=== PATIENT | male | born 1950 | race Caucasian/White ===

== ENCOUNTER → 2018-07-17 | Outpatient (CLI) | payer MEDICARE, OTHER ==
--- NOTE | 2018-07-17 15:57 | XR ---
Lumbar spine HISTORY: Low back pain 3 views of the lumbar spine November vertebral bodies show preserved height, near-anatomic alignment. Bone mineralization is mild ly reduced. There is multilevel spondylosis. Loss of disc height present at the intervertebral levels . Sclerosis present in the posterior elements of the lower lumbar spine. Vascular calcifications are noted. Minimal anterolisthesis grade 1 L4-5. IMPRESSION: Degenerative disc disease, facet arthropathy.
== END | disposition home or self-care (01) ==
LOC: RADXRMAIN 14:57
PROVIDERS: ATTEND Family Medicine
DX: M51.36 Other intervertebral disc degeneration, lumbar region (principal); M46.96 Unspecified inflammatory spondylopathy, lumbar region
CPT/HCPCS: 72100

== ENCOUNTER 2018-08-29 12:21 | Emergency (ER) | payer MEDICARE, OTHER ==
[2018-08-29] MEDS ORDERED: DIPH,PERTUS(ACELL)TETVAC-LF 0.5 ML VIAL IM ONE (12:46)
--- NOTE | 2018-08-29 12:46 | ED ---
General Adult HPI - General Chief complaint: Fall Stated complaint: IHS-Fall Time Seen by Provider: 08/29/18 12:29 Source: patient, RN notes reviewed Mode of arrival: wheelchair Limitations: no limitations - History of Present Illness Initial comments: Patient is a 68-year-old male who presents to the emergency department with complaint of slip and fall on ice at work that happened around noon today. He reports hitting the back of his head; admits to headache. Denies loss of consciousness. Denies anticoagulant use. Reports he is not up-to-date on his tetanus vaccination. Denies neck pain or any additional injury. Patient denies any recent fever, chills, shortness of breath, chest pain, back pain, abdominal pain, nausea or vomiting, numbness or tingling, visual changes, or any other complaints. - Related Data Home Medications Medication Instructions Recorded Confirmed Levothyroxine Sodium [Synthroid] 125 mcg PO DAILY 08/29/18 08/29/18 PARoxetine [Paxil] 20 mg PO DAILY 08/29/18 08/29/18 Allergies Allergy/AdvReac Type Severity Reaction Status Date / Time No Known Allergies Allergy Verified 08/29/18 13:22 Review of Systems ROS Statement: Those systems with pertinent positive or pertinent negative responses have been documented in the HPI. ROS Other: All systems not noted in ROS Statement are negative. Past Medical History Past Medical History: Thyroid Disorder History of Any Multi-Drug Resistant Organisms: None Reported Additional Past Surgical History / Comment(s): SINUS SURGERY R/T FUNGUS. COLONOSCOPY 2005. Past Anesthesia/Blood Transfusion Reactions: Previous Problems w/ Anesthesia Additional Past Anesthesia/Blood Transfusion Reaction / Comment(s): LAST COLONOSCOPY TOOK LONG TIME TO AWAKEN. Past Psychological History: No Psychological Hx Reported Smoking Status: Never smoker Past Alcohol Use History: None Reported Past Drug Use History: None Reported - Past Family History Father Family Medical History: Cancer General Exam Limitations: no limitations General appearance: alert, in no apparent distress Head exam: Present: other (Laceration to posterior head.) Eye exam: Present: normal appearance, PERRL ENT exam: Present: normal oropharynx, normal external ear exam, other (Unable to visualize TMs bilaterally due to cerumen.) Neck exam: Present: normal inspection, full ROM. Absent: tenderness Respiratory exam: Present: normal lung sounds bilaterally. Absent: wheezes, rales, rhonchi Cardiovascular Exam: Present: regular rate, normal rhythm Back exam: Absent: tenderness Neurological exam: Present: alert, oriented X3 Psychiatric exam: Present: normal affect, normal mood Course Vital Signs 08/29/18 08/29/18 12:24 15:59 Temperature 98.1 F 97.4 F L Pulse Rate 90 84 Respiratory 20 16 Rate Blood Pressure 141/81 134/90 O2 Sat by Pulse 96 96 Oximetry Procedures - Laceration Laceration #1 Consent Obtained: verbal consent Indication: laceration Site: scalp Size (cm): 5 Description: linear, clean Depth: simple, single layer Sedation/Analgesia: none Anesthetic Used: lidocaine 1%, with epi Anesthesia Technique: local infiltration Amount (mls): 7 Pre-repair: wound explored, irrigated extensively Type of Sutures: other ([place].) Number of Sutures: 5 ([place].) Patient Tolerated Procedure: well, no complications Medical Decision Making - Medical Decision Making Updated tetanus vaccination here. CT brain reveals no acute intracranial abnormality. CT c-spine reveals no acute fracture or malalignment of the cervical spine. Laceration stapled. Case discussed in detail with attending physician Dr. Davison. Disposition Clinical Impression: Laceration Disposition: HOME SELF-CARE Condition: Good Instructions (If sedation given, give patient instructions): Staple Care (ED) Additional Instructions: Follow-up with your PCP in 1 to 2 days. Return to the emergency department or follow-up with your PCP in 7-10 days for staple removal. Use [id number] Tylenol for pain control as needed. Return to the emergency department if any concerns. Is patient prescribed a controlled substance at d/c from ED?: No Referrals: Supa Macias DO [Primary Care Provider] - 1-2 days
--- NOTE | 2018-08-29 13:11 | CT ---
EXAMINATION TYPE: CT brain k[place] DATE OF EXAM: 08/29/2018 COMPARISON: None HISTORY: 68-year-old male with pain after Slip and fall, open wound back of head, fatigue CT DLP: 1429.4 mGycm Automated exposure control for dose reduction was used. Technique: Examination of the head was done in axial plane without intravenous contrast. Coronal and sagittal reconstructions performed. CT of the cervical spine was obtained in axial plane without intravenous injection of contrast mater ial. Coronal and sagittal reformatted images were obtained from the axial views for evaluation of f ractures, spinal alignment and canal. FINDINGS: Head: There is no evidence of acute intracranial hemorrhage, acute ischemic changes, mass, mass-effect, or extra-axial fluid collection. There is no effacement of cerebral sulci or basal subarachnoid cister ns. There is no hydrocephalus. There is no midline shift. Randolph-white matter distinction is preserv ed. Scattered moderate mucosal thickening ethmoid air cells and anterior left maxillary sinus, mild-to-mo derate left frontal sinus. Orbits and globes appear intact. Mastoid air cells well pneumatized. No ca lvarial fracture. Cervical spine: Partially visualized periodontal disease with extensive areas of periapical lucencies particularly on the left, refer to coronal image 1. No craniocervical junction abnormality, predental space widening , or prevertebral soft tissue swelling. Degenerative changes of the C1 dens articulation. Straightening of the normal cervical lordosis. Preserved alignment. No acute fracture of the cervical spine. Moderate to advanced multilevel spondylotic changes present. Severe degenerative disc disease at C6-C 7. Hypertrophic facet and uncovertebral joint arthropathy at multiple levels. Assessment of the spinal canal is limited from C6-C7 and below from artifact due to the patient's keagan ulders. This possible moderate spinal canal stenosis and C6-C7. Suggestion of a posterior disc protru annette C4-C5 possibly contributing to a moderate to severe spinal canal stenosis. Variable neuroforaminal stenoses throughout, moderate to severe on the left at C3-C4, moderate left C 5-C6, moderate to severe right C5-C6, severe on both sides at C6-C7. Sagittal and coronal reformatted images confirm above findings. COMBINED IMPRESSION: 1. No acute intracranial abnormality seen. Scattered moderate chronic ethmoid sinus disease. 2. No acute fracture or malalignment of the cervical spine. Moderately advanced spondylotic change. P ossible moderate to severe spinal canal stenosis at C4-C5 due to disc herniation and moderate at C6-C 7 due to disc osteophyte complex. Variable neuroforaminal stenoses as outlined above.
[2018-08-29] MEDS ORDERED: LIDOCAINE 1%-EPI 1:100,000 20 ML VIAL SQ ONE (14:34)
[2018-08-29 16:01] VITALS: BP 134/90; PULSE 84; RESP 16; TEMP 97.4
== END 2018-08-29 16:00 | disposition home or self-care (01) ==
LOC: EC 12:21
DX: S01.91XA Laceration without foreign body of unspecified part of head, initial encounter (principal); Z23 Encounter for immunization; E07.9 Disorder of thyroid, unspecified; Z79.890 Hormone replacement therapy; Z79.899 Other long term (current) drug therapy; W00.0XXA Fall on same level due to ice and snow, initial encounter; Y92.69 Other specified industrial and construction area as the place of occurrence of the external cause; Y99.0 Civilian activity done for income or pay
CPT/HCPCS: 12002; 70450; 72125; 90471; 90715; 99283

== ENCOUNTER 2022-12-30 06:32 | Inpatient (IN) | payer MEDICARE, OTHER ==
[2022-12-30 07:04] LABS: Basophils % (A) 0 %; Eosinophils # (A) 0.1 k/uL (0-0.7); Eosinophils % (A) 2 %; HCT 46.6 % (39.0-53.0); HGB 15.5 gm/dL (13.0-17.5); Lymphocytes % (A) 13 %; MCH 31.7 pg (25.0-35.0); MCHC 33.3 g/dL (31.0-37.0); MCV 95.2 fL (80.0-100.0); Mean Platelet Volume 6.9; Monocytes # (A) 0.6 k/uL (0-1.0); Monocytes % (A) 9 %; Neutrophils # (A) 5.6 k/uL (1.3-7.7); Neutrophils % (A) 75 %; Platelet Count 225 k/uL (150-450); RDW 12.7 % (11.5-15.5); WBC 7.5 k/uL (3.8-10.6)
--- NOTE | 2022-12-30 07:07 | ED ---
General Adult HPI - General Chief complaint: Shortness of Breath Stated complaint: SOB Time Seen by Provider: 12/30/22 06:50 Source: patient, RN notes reviewed Mode of arrival: wheelchair Limitations: no limitations - History of Present Illness Initial comments: Patient is a pleasant 72-year-old female presenting to the emergency department with concerns for not feeling well and dyspnea. Onset of symptoms was yesterday morning. Patient has noticed left leg weakness. Patient states this is been present since yesterday morning. Patient state in bed is the day yesterday and fell.. Patient does admit to having some shortness of breath. No chest pain. No palpitations. No history of cardiac arrhythmia however patient states he does have a history of mitral valve prolapse. No confusion or speech problems. - Related Data Home Medications Medication Instructions Recorded Confirmed Levothyroxine Sodium [Synthroid] 125 mcg PO DAILY 08/29/18 08/29/18 PARoxetine [Paxil] 20 mg PO DAILY 08/29/18 08/29/18 Allergies Allergy/AdvReac Type Severity Reaction Status Date / Time No Known Allergies Allergy Verified 08/29/18 13:22 Review of Systems ROS Statement: Those systems with pertinent positive or pertinent negative responses have been documented in the HPI. ROS Other: All systems not noted in ROS Statement are negative. Constitutional: Denies: fever Eyes: Denies: eye pain ENT: Denies: ear pain Respiratory: Reports: dyspnea. Denies: cough Cardiovascular: Denies: chest pain Endocrine: Denies: fatigue Gastrointestinal: Denies: abdominal pain Genitourinary: Denies: dysuria Musculoskeletal: Denies: back pain Skin: Denies: rash Neurological: Reports: as per HPI, weakness Past Medical History Past Medical History: Thyroid Disorder History of Any Multi-Drug Resistant Organisms: None Reported Additional Past Surgical History / Comment(s): SINUS SURGERY R/T FUNGUS. COLONOSCOPY 2005. Past Anesthesia/Blood Transfusion Reactions: Previous Problems w/ Anesthesia Additional Past Anesthesia/Blood Transfusion Reaction / Comment(s): LAST COLONOSCOPY TOOK LONG TIME TO AWAKEN. Past Psychological History: No Psychological Hx Reported Smoking Status: Never smoker Past Alcohol Use History: None Reported Past Drug Use History: None Reported - Past Family History Father Family Medical History: Cancer General Exam Limitations: no limitations General appearance: alert, in no apparent distress Head exam: Present: normocephalic Eye exam: Present: normal appearance, PERRL, EOMI Neck exam: Present: normal inspection Respiratory exam: Present: normal lung sounds bilaterally Cardiovascular Exam: Present: irregular rhythm GI/Abdominal exam: Present: soft. Absent: tenderness Extremities exam: Present: normal inspection Neurological exam: Present: alert, oriented X3, CN II-XII intact Expanded Neurological exam: Present: protecting the airway Patient oriented to: Present: person, place, time Speech: Present: fluid speech Cranial nerves: EOM's Intact: Normal Sensory exam: Upper Extremity Light Touch: Normal, Lower Extremity Light Touch: Normal Motor strength exam: RUE: 5, LUE: 5, RLE: 5, LLE: 4 Eye Response: (4) open spontaneously Motor Response: (6) obeys commands Verbal Response: (5) oriented Psychiatric exam: Present: normal affect, normal mood Skin exam: Present: normal color Course Vital Signs 12/30/22 06:35 Temperature 98.2 F Pulse Rate 107 H Respiratory 22 Rate Blood Pressure 120/80 O2 Sat by Pulse 97 Oximetry EKG Findings - EKG Results: EKG: interpreted by LUCYD, normal axis, normal QRS, normal ST/T EKG shows: tachycardia, atrial fibrillation Medical Decision Making - Medical Decision Making Was pt. sent in by a medical professional or institution (, PA, ELECTRIC VEHICLE ELECTRICIAN, urgent care, hospital, or fdc...) When possible be specific @ -No Did you speak to anyone other than the patient for history (EMS, parent, family, police, friend...)? What history was obtained from this source @ -No Did you review nursing and triage notes (agree or disagree)? Why? @ -I reviewed and agree with nursing and triage notes Were old charts reviewed (outside hosp., previous admission, EMS record, old EKG, old radiological studies, urgent care reports/EKG's, fdc records)? Report findings @ -No old charts were reviewed Differential Diagnosis (chest pain, altered mental status, abdominal pain women, abdominal pain men, vaginal bleeding, weakness, fever, dyspnea, syncope, headache, dizziness, GI bleed, back pain, seizure, CVA, palpatations, mental health)? @ -Differential Weakness: Hypoglycemia, shock, sepsis, hyponatremia, anemia, infection, UT, ETOH, adverse medicine reaction, overdose, stroke, this is not meant to be an all-inclusive list. EKG interpreted by me (3pts min.). @ -As above X-rays interpreted by me (1pt min.). @ -Chest x-ray shows cardiomegaly and cephalization, concerning for CHF CT interpreted by me (1pt min.). @ -CT brain without large mass or hemorrhage U/S interpreted by me (1pt. min.). @ -None done What testing was considered but not performed or refused? (CT, X-rays, U/S, labs)? Why? @ -MRI will be added What meds were considered but not given or refused? Why? @ -Considered heparin secondary to A. fib however patient has stroke. As discussed with Dr. Boo with neurology patient will obtain MRI and heparinization will be determined following that based on size of stroke Did you discuss the management of the patient with other professionals (professionals i.e. , PA, ELECTRIC VEHICLE ELECTRICIAN, lab, RT, psych nurse, certified social workers in health care, post closing specialist, teacher, electoral officer, dependency case manager)? Give summary @ -Case discussed with [facility] hospitalist who will admit covering Dr. Macias. Case also discussed with neurologist Was smoking cessation discussed for >3mins.? @ -No Was critical care preformed (if so, how long)? @ -31 minutes critical care Were there social determinants of health that impacted care today? How? (Homelessness, low income, unemployed, alcoholism, drug addiction, transportation, low edu. Level, literacy, decrease access to med. care, fci, rehab)? @ -No Was there de-escalation of care discussed even if they declined (Discuss DNR or withdrawal of care, Hospice)? DNR status @ -No What co-morbidities impacted this encounter? (DM, HTN, Smoking, COPD, CAD, Cancer, CVA, ARF, Chemo, Hep., AIDS, mental health diagnosis, sleep apnea, morbid obesity)? @ -None Was patient admitted / discharged? Hospital course, mention meds given and route, prescriptions, significant lab abnormalities, going to OR and other pertinent info. @ -Patient reevaluated and updated. Heart rate remains 105. Patient be admitted with both neurology and cardiology consult. Determination will need to be made on heparinization and anticoagulation going forward. Undiagnosed new problem with uncertain prognosis? @ -New-onset A. fib with RVR Drug Therapy requiring intensive monitoring for toxicity (Heparin, Nitro, Insulin, Cardizem)? @ -No Were any procedures done? @ -No Diagnosis/symptom? @ -A. fib with RVR, CVA, CHF Acute, or Chronic, or Acute on Chronic? @ -Acute, acute, acute Uncomplicated (without systemic symptoms) or Complicated (systemic symptoms)? @ -A. fib was complicated by stroke Also complicated by CHF Side effects of treatment? @ -No Exacerbation, Progression, or Severe Exacerbation? @ -No Poses a threat to life or bodily function? How? (Chest pain, [place], UT, pneumonia, PE, COPD, DKA, ARF, appy, cholecystitis, CVA, Diverticulitis, Homicidal, Suicidal, threat to staff... and all critical care pts) @ -No - Lab Data Result diagrams: 12/30/22 06:50 12/30/22 06:50 Lab Results 12/30/22 12/30/22 12/30/22 Range/Units 06:50 06:50 06:50 WBC 7.5 (3.8-10.6) k/uL RBC 4.90 (4.30-5.90) m/uL Hgb 15.5 (13.0-17.5) gm/dL Hct 46.6 (39.0-53.0) % MCV 95.2 (80.0-100.0) fL MCH 31.7 (25.0-35.0) pg MCHC 33.3 (31.0-37.0) g/dL RDW 12.7 (11.5-15.5) % Plt Count 225 (150-450) k/uL MPV 6.9 Neutrophils % 75 % Lymphocytes % 13 % Monocytes % 9 % Eosinophils % 2 % Basophils % 0 % Neutrophils # 5.6 (1.3-7.7) k/uL Lymphocytes # 1.0 (1.0-4.8) k/uL Monocytes # 0.6 (0-1.0) k/uL Eosinophils # 0.1 (0-0.7) k/uL Basophils # 0.0 (0-0.2) k/uL PT 10.9 (9.0-12.0) sec INR 1.0 (<1.2) APTT 24.9 (22.0-30.0) sec Sodium 137 (137-145) mmol/L Potassium 3.9 (3.5-5.1) mmol/L Chloride 101 (98-107) mmol/L Carbon Dioxide 28 (22-30) mmol/L Anion Gap 8 mmol/L BUN 17 (9-20) mg/dL Creatinine 0.83 (0.66-1.25) mg/dL Est GFR (CKD-EPI)AfAm >90 (>60 ml/min/1.73 sqM) Est GFR (CKD-EPI)NonAf 89 (>60 ml/min/1.73 sqM) Glucose 106 H (74-99) mg/dL Plasma Lactic Acid Honorio (0.7-2.0) mmol/L Calcium 8.1 L (8.4-10.2) mg/dL Total Bilirubin 2.0 H (0.2-1.3) mg/dL AST 27 (17-59) U/L ALT 29 (4-49) U/L Alkaline Phosphatase 83 (38-126) U/L Troponin I (0.000-0.034) ng/mL Total Protein 7.1 (6.3-8.2) g/dL Albumin 4.1 (3.5-5.0) g/dL 12/30/22 12/30/22 Range/Units 06:50 06:50 WBC (3.8-10.6) k/uL RBC (4.30-5.90) m/uL Hgb (13.0-17.5) gm/dL Hct (39.0-53.0) % MCV (80.0-100.0) fL MCH (25.0-35.0) pg MCHC (31.0-37.0) g/dL RDW (11.5-15.5) % Plt Count (150-450) k/uL MPV Neutrophils % % Lymphocytes % % Monocytes % % Eosinophils % % Basophils % % Neutrophils # (1.3-7.7) k/uL Lymphocytes # (1.0-4.8) k/uL Monocytes # (0-1.0) k/uL Eosinophils # (0-0.7) k/uL Basophils # (0-0.2) k/uL PT (9.0-12.0) sec INR (<1.2) APTT (22.0-30.0) sec Sodium (137-145) mmol/L Potassium (3.5-5.1) mmol/L Chloride (98-107) mmol/L Carbon Dioxide (22-30) mmol/L Anion Gap mmol/L BUN (9-20) mg/dL Creatinine (0.66-1.25) mg/dL Est GFR (CKD-EPI)AfAm (>60 ml/min/1.73 sqM) Est GFR (CKD-EPI)NonAf (>60 ml/min/1.73 sqM) Glucose (74-99) mg/dL Plasma Lactic Acid Honorio 1.0 (0.7-2.0) mmol/L Calcium (8.4-10.2) mg/dL Total Bilirubin (0.2-1.3) mg/dL AST (17-59) U/L ALT (4-49) U/L Alkaline Phosphatase (38-126) U/L Troponin I <0.012 (0.000-0.034) ng/mL Total Protein (6.3-8.2) g/dL Albumin (3.5-5.0) g/dL Critical Care Time Critical Care Time: Yes Total Critical Care Time: 31 Disposition Clinical Impression: Atrial fibrillation with RVR, Congestive heart failure, CVA (cerebral vascular accident) Disposition: ADMITTED IP TO THIS HOSP Condition: Serious Is patient prescribed a controlled substance at d/c from ED?: No Referrals: Supa Macias DO [Primary Care Provider] - 1-2 days Time of Disposition: 07:58
--- NOTE | 2022-12-30 07:18 | XR ---
EXAMINATION TYPE: XR chest 2V DATE OF EXAM: 12/30/2022 COMPARISON: Chest x-ray May 24, 2011 HISTORY: Difficulty in breathing. TECHNIQUE: Frontal and lateral views of the chest are obtained. FINDINGS: There is no suspicious new focal air space opacity, pleural effusion, or pneumothorax seen . Cardiomegaly is redemonstrated. The osseous structures are intact. IMPRESSION: Cardiomegaly with perhaps mild central vascular congestion. Correlate for CHF exacerbati on.
[2022-12-30 07:22] LABS: Partial Thromboplastin Time 24.9 sec (22.0-30.0); Prothrombin Time 10.9 sec (9.0-12.0)
[2022-12-30 07:23] LABS: ALT 29 U/L (4-49); AST 27 U/L (17-59); African American GFR (CKD) >90 (>60 ml/min/1.73 sqM); Albumin 4.1 g/dL (3.5-5.0); Alkaline Phosphatase 83 U/L (38-126); Anion Gap 8 mmol/L; Blood Urea Nitrogen 17 mg/dL (9-20); Calcium 8.1 mg/dL (8.4-10.2); Carbon Dioxide 28 mmol/L (22-30); Chloride 101 mmol/L (98-107); Glucose 106 mg/dL (74-99); Non-African American GFR(CKD) 89 (>60 ml/min/1.73 sqM); Potassium 3.9 mmol/L (3.5-5.1); Sodium 137 mmol/L (137-145); Total Protein 7.1 g/dL (6.3-8.2)
--- NOTE | 2022-12-30 07:40 | CT ---
EXAMINATION TYPE: CT brain wo con DATE OF EXAM: 12/30/2022 HISTORY: CVA. CT DLP: 99 mGycm. Automated Exposure Control for Dose Reduction was Utilized. TECHNIQUE: CT scan of the head is performed without contrast. COMPARISON: CT brain August 29, 2018. FINDINGS: There is no acute intracranial hemorrhage or midline shift identified. Ventricles and sul ci within normal limits in size for patient's age. Randolph-white matter differentiation maintained. The globes are intact and the visualized sinuses are clear. IMPRESSION: No acute intracranial hemorrhage or midline shift. No significant change from prior.
[2022-12-30] MEDS ORDERED: CALCIUM CARBONATE 500 MG CHEWABLE PO STA (07:43)
[2022-12-30] MEDS ORDERED: CALCIUM CARB-VIT D 500 MG-5 MCG TAB PO STA (07:44)
[2022-12-30] MEDS ORDERED: FUROSEMIDE 10 MG/ML 4 ML VIAL IV STA (07:59)
[2022-12-30] MEDS ORDERED: ASPIRIN 325 MG TAB PO STA (07:59)
[2022-12-30 08:07] LABS: T4, Free (Free Thyroxine) 0.86 ng/dL (0.78-2.19)
--- NOTE | 2022-12-30 08:56 | US ---
EXAMINATION TYPE: US carotid duplex BILAT DATE OF EXAM: 12/30/2022 COMPARISON: NONE CLINICAL INDICATION: Male, 72 years old with history of Stenosis; sob TECHNIQUE: Carotid duplex ultrasound examination. Indirect Doppler criteria was utilized. FINDINGS: EXAM MEASUREMENTS: RIGHT: Peak Systolic Velocity (PSV) cm/sec ----- Right CCA: 60.5 ----- Right ICA: 70.6 ----- Right ECA: 81.2 ICA/CCA ratio: 1.2 RIGHT: End Diastole cm/sec ----- Right CCA: 24.1 ----- Right ICA: 16.9 ----- Right ECA: 17.3 LEFT: Peak Systolic Velocity (PSV) cm/sec ----- Left CCA: 63.8 ----- Left ICA: 63.8 ----- Left ECA: 84.1 ICA/CCA ratio: 1.0 LEFT: End Diastole cm/sec ----- Left CCA: 27.5 ----- Left ICA: 27.5 ----- Left ECA: 20.2 VERTEBRALS (direction of flow): Right Vertebral: Not well visualized Left Vertebral: Antegrade Rhythm: Normal [employer] PROFESS[employer] NOTES: No significant stenosis seen Right vertebral artery patency not documented on today's study. IMPRESSION: No hemodynamically significant stenosis in either internal carotid artery. Criteria for Assigning % of Stenosis / Diameter reduction (Estimation based on the indirect measurements of the internal carotid artery velocities (ICA PSV). 1. Normal (no stenosis)=ICA PSV < 125 cm/s: ratio < 2.0: ICA EDV<40 cm/s. 2. Less than 50% stenosis=ICA PSV < 125 cm/s: ratio < 2.0: ICA EDV<40 cm/s. 3. 50 to 69% stenosis=ICA PSV of 125 to 230 cm/s: ration 2.0 ? 4.0: ICA EDV 40-100 cm/s. 4. Greater than 70% stenosis to near occlusion= ICA PSV > 230 cm/s: ratio > 4.0: ICA EDV > 100 cm/s. 5. Near occlusion= ICA PSV velocities may be low or undetectable: variable ratio and ICA EDV. 6. Total occlusion=unable to detect flow.
--- NOTE | 2022-12-30 11:01 | MR ---
EXAMINATION TYPE: MR brain wo con DATE OF EXAM: 12/30/2022 COMPARISON: CT brain earlier today HISTORY: CVA. TECHNIQUE: Multiplanar, multisequence imaging of the brain and brainstem is performed without IV cont rast. FINDINGS: Diffusion weighted images demonstrate no evidence of a recent infarct or other diffusion abnormality. Mild ventricular and sulcal prominence is redemonstrated. There is no extraaxial fluid collection or significant white matter signal abnormality. Midline structures demonstrate normal morphology. The craniocervical junction appears within normal limits. Normal vascular flow voids are present. Dominant left vertebral artery is incidentally noted. Incidental subcentimeter mucous retention cyst or polyp anterior left maxillary sinus axial image 4. The visualized sinuses are otherwise clear and the globes are intact. IMPRESSION: No MRI evidence for a recent infarct.
[2022-12-30] MEDS: APIXABAN 5 MG TAB PO SCH ×2 (13:58→21:14)
[2022-12-30] MEDS: METOPROLOL TARTRATE 25 MG TAB PO SCH ×2 (13:58→21:14)
--- NOTE | 2022-12-30 15:48 | P.CNNES ---
History of Present Illness Consult date: 12/30/22 Requesting physician: Tashi Davison Reason for Consult: cva with afib History of Present Illness: This is a 72-year-old gentleman with hypothyroidism who presented emergency department because of left leg weakness as well as chest pain and dyspnea. Patient stated that he woke up today around 5:30 in the morning and he noticed that his left leg was weak. Last normal state was about 8 PM yesterday. Otherwise he denies any other focal deficit. Since 1 states that having chest pain shortness of breath. He denies any history of atrial fibrillation. Denies being on any antiplatelets. Denies any history of stroke or TIA. He feels his symptoms is improving. Seems that during the ED was found to have new onset atrial fibrillation and patient denied any history of atrial fibrillation the past. The ED team notifie d via but the patient of the new onset A. fib and concern for stroke and I notified him to obtain the MRI the brain stat to assess the size of stroke before starting anticoagulation. And if negative skin posterior anticoagulation from a neurologic perspective. Some of the workup done during this hospital visit consisted of: Chemistry panel is unremarkable. TSH is within normal limits CT of the head is reported as no acute intracranial hemorrhage or midline shift. No significant change from prior. IV TPA since the patient the was outside the window was more than 4-1/2 hour and it was awake up strokelike symptoms. And the risk outweigh benefits. MRI of the brain without is reported as no MRI evidence for recent infarct. I personally reviewed the MRI and I agree with the report. Carotid Duplex was reported as no hemodynamic significant stenosis in either internal carotid artery. EKG is reported as age are fibrillation with rapid ventricular response. Moderate intraventricular conduction delay. Review of Systems Review of system: The 12 point system was reviewed and apparent positive and negative per HPI. Past Medical History Past Medical History: Thyroid Disorder History of Any Multi-Drug Resistant Organisms: None Reported Additional Past Surgical History / Comment(s): SINUS SURGERY R/T FUNGUS. COLONOSCOPY 2018. Past Anesthesia/Blood Transfusion Reactions: Previous Problems w/ Anesthesia Additional Past Anesthesia/Blood Transfusion Reaction / Comment(s): LAST COLONOSCOPY TOOK LONG TIME TO AWAKEN. Past Psychological History: No Psychological Hx Reported Smoking Status: Never smoker Past Alcohol Use History: None Reported Past Drug Use History: None Reported - Past Family History Father Family Medical History: Cancer Medications and Allergies Home Medications Medication Instructions Recorded Confirmed Type Levothyroxine Sodium [Synthroid] 125 mcg PO DAILY 08/29/18 12/30/22 History PARoxetine HCL [Paxil] 30 mg PO DAILY 12/30/22 12/30/22 History Allergies Allergy/AdvReac Type Severity Reaction Status Date / Time No Known Allergies Allergy Verified 12/30/22 08:21 Physical Examination - Vital Signs Vital Signs: Vital Signs Temp Pulse Pulse Resp BP BP Pulse Ox 12/30/22 14:31 97.9 F 120 H 17 131/84 98 12/30/22 13:59 121 H 17 131/84 98 12/30/22 13:36 102 H 18 102/78 98 12/30/22 13:29 109 H 16 122/78 97 12/30/22 12:13 97.7 F 108 H 18 122/78 97 12/30/22 08:19 112 H 18 110/91 100 12/30/22 07:15 18 12/30/22 06:35 98.2 F 107 H 22 120/80 97 Intake and Output 12/30/22 12/30/22 12/30/22 06:59 14:59 22:59 Other: Voiding Method Toilet # Voids 1 Weight 113.398 kg 113.398 kg GENERAL: The patient is lying in bed and is not in acute distress. CHEST: No edema in extremities. LUNG: Not labored breathing. NEUROLOGICAL: Higher mental function: The patient is awake, alert, oriented to self, place and time. Patient is following commands. No aphasia and no neglect. Cranial nerves: The pupils are round, equal and reactive to light and accommodation. Visual hall are full to confrontation throughout. Extraocular movement is intact no nystagmus is noted. Facial sensation is normal to touch throughout. The facial strength is normal throughout. Hearing is normal bilaterally to hand rub. Tongue is midline and moved [id number] without any difficulty. No dysarthria is noted. Shoulder shrug is normal bilaterally. Motor: The strength is 5 over 5 throughout. Normal tone and bulk. Cerebellum: Normal finger to nose bilaterally. Sensation: Sensation is normal to touch throughout. Reflexes (right/left): 2+ throughout. Plantars are downgoing bilaterally. Results - Laboratory Findings CBC and BMP: 12/30/22 06:50 12/30/22 06:50 Abnormal Lab Findings: Abnormal Labs 12/30/22 06:50 Glucose 106 H Calcium 8.1 L Total Bilirubin 2.0 H Assessment and Plan Assessment: This is a 72-year-old gentleman who had that chest pain since this past one state with shortness of breath and then today he woke up with left leg weakness. In the ED was found to have new onset A. fib. Likely Transient ischemic attack (presented with left leg weakness resolved). MRI Brain is negative for acute or subacute stroke. Because of new onset A-fib likely cause of new leg weakness. New onset atrial fibrillations History of hypothyroidism Plan: From a neurologic perspective he is cleared to start on anticoagulation. Patient is started on Eliquis 5 mg 1 tablet twice a day by cardiology. He is also on aspirin 325mg daily that was started by ED and will defer the use of antiplatelet to the primary and cardiology team. I started the patient on Lipitor 20 g daily at bedtime for second initial prophylaxis Lipid panel, 2-D echo and the hemoglobin A1c is ordered and spending Continue neuro checks On cardiac monitoring PT OT and CINDER BLOCK MASON are consulted We'll defer the rest of the medical management to the primary team Cardiology is on board For DVT prophylaxis: Is on Eliquis. Plan discussed with the patient and his nurse Thank you for the consultation. Time with Patient: Greater than 30
[2022-12-30 23:07] VITALS: RESP 18
[2022-12-31] MEDS: LEVOTHYROXINE 125 MCG TAB PO SCH (06:50)
[2022-12-31] MEDS: APIXABAN 5 MG TAB PO SCH ×2 (08:51→20:22)
[2022-12-31] MEDS: METOPROLOL TARTRATE 25 MG TAB PO SCH (08:51)
[2022-12-31] MEDS: PARoxetine 10 MG TAB PO SCH (08:51)
[2022-12-31] MEDS ORDERED: ASPIRIN 325 MG TAB PO SCH (09:00)
[2022-12-31] MEDS ORDERED: METOPROLOL TARTRATE 25 MG TAB PO STA (11:04)
--- NOTE | 2022-12-31 12:02 | P.CRDCN ---
History of Present Illness Consult date: 12/31/22 Consult reason: atrial fibrillation History of present illness: This is Delbert Rey NP, I'm dictating on behalf of Dr. Pierre's H&P and A&P The patient was interviewed and examined. HPI: Patient is a pleasant 72-year-old male who presented to the hospital with complaints of left leg weakness and fatigue. Patient reports that he noticed l eft leg weakness probably for a week, states it was significantly worse yesterday morning. Patient also felt very fatigued and weak. He came to the hospital for evaluation. Patient had initial workup for CVA, which did not demonstrate any obvious stroke on computed tomography scan or MRI. Patient also had carotid Dopplers done which did not demonstrate significant clot or stenosis. Patient was found in the emergency department to be in atrial fibrillation with rapid ventricular response. Patient had an echocardiogram ordered, read is pending. Patient was started on metoprolol, which initially controlled his heart rate. Patient remains in atrial fibrillation. Patient was also started on anticoagulation with Eliquis. This morning patient reports that he is feeling much better today. He is denying any of the fatigue, leg weakness, or heart palpitations that he came in with. Neurology has seen the patient and feels he likely had a TIA. ROS: [No fever, chills, or rigors] [no cough, phlegm, or expectoration] [no nausea, vomiting, or diarrhea] [no hematuria, dysuria] [no musculoskelatal complaints] [no strokes or seizures] [no skin lesions] EXAMINATION: GENERAL: Well-appearing, well-nourished and in no acute distress. NECK: Supple without JVD or thyromegaly. LUNGS: Breath sounds clear to auscultation bilaterally. Respiration equal and unlabored. No wheezes, rales or rhonchi. HEART: Regular rate and irregular rhythm without murmurs, rubs or gallops. S1 and S2 heard. EXTREMITIES: Normal range of motion, no edema. No clubbing or cyanosis. Peripheral pulses intact and strong. REVIEW OF LABS, ECG & MEDICAL DATA: LABS: White count 7.5, hemoglobin 15.5, platelets 225, sodium 137, potassium 3.9, BUNs 17, creatinine 0.83, hemoglobin A1c 5.6, calcium 8.1, magnesium 2.1, troponins less than 0.0123, BNP 751, TSH 1.35 EKG: Atrial fibrillation with rapid ventricular response IMAGING: Chest x-ray dated 12/30/2022 demonstrates cardiomegaly with perhaps mild central vascular congestion, correlate for CHF exacerbation. CT of the brain without contrast dated 12/30/2022 demonstrates no acute intracranial hemorrhage or midline shift, no significant change from prior. Carotid Doppler study dated 12/30/2022 demonstrates no hemodynamically significant stenosis in e ither internal carotid artery. MRI of the brain dated 12/30/2022 demonstrates no MRI evidence for a recent infarct. VITALS: Temp 98.1, pulse 65, respirations 18, blood pressure 113/62, O2 saturation 96% on room air IMPRESSION: 1. TIA, cause possibly secondary to atrial fibrillation 2. Atrial fibrillation with rapid ventricular response, heart rate currently controlled PLAN: Obtain lipid panel. Change aspirin to 81 mg daily. Start atorvastatin 20 mg at bedtime. After rounding, nursing came and reported that the patient was up walking and his heart rate increased into the 110-120 range. We will increase his metoprolol to 50 mg twice a day today, and to metoprolol succinate 100 mg daily tomorrow. Give 1 dose of metoprolol tartrate 25 mg now. Further recommendations based on the patient's clinical course. Thank you for the consult and allowing us to participate in the care of this pa brandi. Past Medical History Past Medical History: Thyroid Disorder History of Any Multi-Drug Resistant Organisms: None Reported Additional Past Surgical History / Comment(s): SINUS SURGERY R/T FUNGUS. COLONOSCOPY 2005. Past Anesthesia/Blood Transfusion Reactions: Previous Problems w/ Anesthesia Additional Past Anesthesia/Blood Transfusion Reaction / Comment(s): LAST COLONOSCOPY TOOK LONG TIME TO AWAKEN. Past Psychological History: No Psychological Hx Reported Smoking Status: Never smoker Past Alcohol Use History: None Reported Past Drug Use History: None Reported - Past Family History Father Family Medical History: Cancer Medications and Allergies Home Medications Medication Instructions Recorded Confirmed Type Levothyroxine Sodium [Synthroid] 125 mcg PO DAILY 08/29/18 12/30/22 History PARoxetine HCL [Paxil] 30 mg PO DAILY 12/30/22 12/30/22 History Allergies Allergy/AdvReac Type Severity Reaction Status Date / Time No Known Allergies Allergy Verified 12/30/22 08:21 Physical Exam Vitals: Vital Signs Temp Pulse Pulse Resp BP BP Pulse Ox 12/31/22 08:00 98.1 F 65 18 113/62 96 12/31/22 04:00 98.0 F 93 18 105/60 98 12/31/22 00:00 98.2 F 84 18 123/70 97 12/30/22 20:00 97.9 F 86 18 130/74 98 12/30/22 17:07 90 17 113/71 97 12/30/22 14:31 97.9 F 120 H 17 131/84 98 12/30/22 13:59 121 H 17 131/84 98 12/30/22 13:36 102 H 18 102/78 98 12/30/22 13:29 109 H 16 122/78 97 12/30/22 12:13 97.7 F 108 H 18 122/78 97 Intake and Output 12/30/22 12/31/22 12/31/22 22:59 06:59 14:59 Intake Total 240 590 Balance 240 590 Intake: Oral 240 590 Other: Voiding Method Toilet Toilet Toilet # Voids 0 100 Weight 110.5 kg Results 12/30/22 06:50 12/30/22 06:50 Cardiac Enzymes 12/30/22 Range/Units 11:07 Troponin I <0.012 (0.000-0.034) ng/mL Current Medications Generic Name Dose Route Start Last Admin Trade Name Freq PRN Reason Stop Dose Admin Apixaban 5 mg 12/30/22 13:38 12/31/22 08:51 Apixaban 5 Mg Tab PO 5 mg BID [facility] Administration Protocol Aspirin 81 mg 01/01/23 09:00 Aspirin 81 Mg PO DAILY [facility] Atorvastatin Calcium 20 mg 12/31/22 21:00 Atorvastatin 20 Mg Tab PO [facility] Levothyroxine Sodium 125 mcg 12/31/22 06:30 12/31/22 06:50 Levothyroxine 125 Mcg Tab PO 125 mcg DAILY@0630 [facility] Administration Metoprolol Succinate 100 mg 01/01/23 09:00 Metoprolol Succinate (Er) 100 Mg Tab.Er.24h PO DAILY [facility] Metoprolol Tartrate 50 mg 12/31/22 21:00 Metoprolol Tartrate 50 Mg Tab PO 01/01/23 08:59 BID [facility] Paroxetine HCl 30 mg 12/31/22 09:00 12/31/22 08:51 Paroxetine 10 Mg Tab PO 30 mg DAILY [facility] Administration Intake and Output 12/30/22 12/31/22 12/31/22 22:59 06:59 14:59 Intake Total 240 590 Balance 240 590 Intake: Oral 240 590 Other: Voiding Method Toilet Toilet Toilet # Voids 0 100 Weight 110.5 kg 12/30/22 06:50 12/30/22 06:50
[2022-12-31 14:25] LABS: Chol/HDL Ratio 4.16 Ratio; LDL Cholesterol,Calculated 90.9 mg/dL (0.0-131.0)
--- NOTE | 2022-12-31 15:49 | P.PN ---
Subjective Progress Note Date: 12/31/22 The patient seen at bedside and he feels he is doing better. He feels some mild weakness in left lower extremity. Denies of any new neurological issues. Objective - Vital Signs Vital signs: Vital Signs Temp 97.9 F 12/31/22 12:00 Pulse 88 12/31/22 12:00 Resp 18 12/31/22 12:00 BP 108/71 12/31/22 12:00 Pulse Ox 98 12/31/22 12:00 FiO2 Intake & Output 12/30/22 12/31/22 12/31/22 18:59 06:59 18:59 Intake Total 240 1180 Balance 240 1180 Weight 113.398 kg 110.5 kg Intake: Oral 240 1180 Other: Voiding Method Toilet Toilet Toilet # Voids 1 100 - Exam GENERAL: The patient is lying in bed and is not in acute distress. NEUROLOGICAL: Higher mental function: The patient is awake, alert, oriented to self, place and time. Patient is following commands. No aphasia and no neglect. Cranial nerves: The pupils are round, equal and reactive to light and accommodation. Visual hall are full to confrontation throughout. Extraocular movement is intact no nystagmus is noted. Facial sensation is normal to touch throughout. The facial strength is normal throughout. Hearing is normal bilaterally to hand rub. Tongue is midline and moved [id number] without any difficulty. No dysarthria is noted. Shoulder shrug is normal bilaterally. Motor: Gait is normal. The strength is 5 over 5 throughout. Normal tone and bulk. Cerebellum: Normal finger to nose bilaterally. Sensation: Sensation is normal to touch throughout. Reflexes (right/left): 2+ throughout. Plantars are downgoing bilaterally. Some of the workup done during this hospital visit consisted of: Chemistry panel is unremarkable. TSH is within normal limits Lipid panel is soft triglyceride of 123, cholesterol 152, LDL is 90 and HDL is 36 Hemoglobin A1c is 5.6. CT of the head is reported as no acute intracranial hemorrhage or midline shift. No significant change from prior. No IV TPA since the patient the was outside the window was more than 4-1/2 hour and it was awake up strokelike symptoms. And the risk outweigh benefits. MRI of the brain without is reported as no MRI evidence for recent infarct. I personally reviewed the MRI and I agree with the report. Carotid Duplex was reported as no hemodynamic significant stenosis in either in ternal carotid artery. EKG is reported as age are fibrillation with rapid ventricular response. Mod erate intraventricular conduction delay. 2D echo: Was reported as left ventricular ejection fraction 30%, severely left ventricle dysfunction. Patient in atrial fibrillation. Increase left ventricul ar mass. Left atrial enlargement. Right ventricle dilation. - Labs CBC & Chem 7: 12/30/22 06:50 12/30/22 06:50 Labs: Abnormal Lab Results - Last 24 Hours (Table) 12/31/22 Range/Units 07:48 HDL Cholesterol 36.50 L (40.00-60.00) mg/dL Assessment and Plan Assessment: This is a 72-year-old gentleman who had that chest pain since this past one state with shortness of breath and then today he woke up with left leg weakness. In the ED was found to have new onset A. fib. Likely Transient ischemic attack (presented with left leg weakness resolved). MRI Brain is negative for acute or subacute stroke. Because of new onset A-fib likely cause of new leg weakness. New onset atrial fibrillations Solid heart failure with ejection fraction of 30% Left atrial enlargement. History of hypothyroidism Plan: Patient is started on Eliquis 5 mg 1 tablet twice a day by cardiology. Also cardiology is decreased to aspirin that was started by the ED 325 daily to 81mg. On Lipitor 20 g daily at bedtime for second initial prophylaxis Continue neuro checks On cardiac monitoring PT OT and S[employer] HEALTH MANAGER are consulted We'll defer the rest of the medical management to the primary team Cardiology is on board. 2D echo: Was reported as left ventricular ejection fraction 30%, severely left ventricle dysfunction. Patient in atrial fibrillation. Increase left brandon tricular mass. Left atrial enlargement. Right ventricle dilation. Will defer management to cardiology team. For DVT prophylaxis: Is on Eliquis. Plan discussed with the patient and his nurse No further neurological work-up. Will sign off. Please reconsult if needed. Time with Patient: Less than 30
--- NOTE | 2022-12-31 16:53 | CA ---
Transthoracic Echo Report Name: Jett Shah Age: 72 Gender: M : 1950 Exam Date: 12/30/2022 11:32 Exam Location: [place] [facility] Ht (in): 67 Wt (lb): 250 Ordering Physician: Tashi Davison DO Attending/Referring Phys: [employer] Blind [employer]ic Eliza Lim RDCS Procedure CPT: Indications: Thrombus Cardiac Hx: Technical Quality: Technically difficult study Contrast 1: Lumason Total Dose (mL): 3 Contrast 2: Total Dose (mL): MEASUREMENTS (Male / Female) Normal Values 2D ECHO LV Diastolic Diameter PLAX 5.1 cm 4.2 - 5.9 / 3.9 - 5.3 cm LV Systolic Diameter PLAX 4.0 cm IVS Diastolic Thickness 1.3 cm 0.6 - 1.0 / 0.6 - 0.9 cm LVPW Diastolic Thickness 1.2 cm 0.6 - 1.0 / 0.6 - 0.9 cm LV Relative Wall Thickness 0.5 RV Internal Dim ED PLAX 3.3 cm LA Systolic Diameter LX 4.1 cm 3.0 - 4.0 / 2.7 - 3.8 cm LV Diastolic Volume MOD BP 105.7 cm??? 67 - 155 / 56 - 104 cm??? LV Systolic Volume MOD BP 62.2 cm??? 22 - 58 / 19 - 49 cm??? LV Ejection Fraction MOD BP 41.2 % >= 55 % LV Diastolic Volume MOD 4C 108.5 cm??? LV Systolic Volume MOD 4C 63.4 cm??? LV Ejection Fraction MOD 4C 41.6 % LV Diastolic Length 4C 7.7 cm LV Systolic Length 4C 6.9 cm LV Diastolic Volume MOD 2C 93.9 cm??? LV Systolic Volume MOD 2C 58.6 cm??? LV Ejection Fraction MOD 2C 37.6 % LV Diastolic Length 2C 8.7 cm LV Systolic Length 2C 7.3 cm LA Volume 79.6 cm??? 18 - 58 / 22 - 52 cm??? M-MODE Aortic Root Diameter MM 3.7 cm MV E Point Septal Separation 1.2 cm AV Cusp Separation MM 2.6 cm DOPPLER AV Peak Velocity 90.4 cm/s AV Peak Gradient 3.3 mmHg MV Area PHT 7.2 cm??? MV Deceleration Time 151.7 ms TR Peak Velocity 227.9 cm/s TR Peak Gradient 20.8 mmHg Right Ventricular Systolic Press 25.0 mmHg FINDINGS Left Ventricle Left ventricular ejection fraction is estimated at 35-40 %. Left ventricular cavity size normal. Mildly increased septal wall thickness. Mildly increased left ventricular systolic volume. Moderately decreased left ventricular ejection fraction. Right Ventricle Mild right ventricular dilatation. Right ventricular systolic pressure within normal limits. Right Atrium Normal right atrial size. Left Atrium Mildly increased left atrial diameter. Severely increased left atrial volume. Mitral Valve Structurally normal mitral valve. No mitral stenosis, regurgitation or prolapse. Aortic Valve Trileaflet aortic valve. No aortic valve stenosis or regurgitation. Tricuspid Valve Structurally normal tricuspid valve. Mild tricuspid regurgitation. Pulmonic Valve Structurally normal pulmonic valve. Mild pulmonic regurgitation. Pericardium Normal pericardium. No pericardial or pleural effusion. Aorta Normal size aortic root and proximal ascending aorta. CONCLUSIONS Left ventricular ejection fraction 30%, severe LV dysfunction Patient in atrial fibrillation Increase LV mass RV dilation Left atrial enlargement Previewed by: Dr. Sreekanth Pierre MD (Electronically Signed) Final Date: 31 Dec 2022 16:52
--- NOTE | 2022-12-31 17:24 | P.HPIM ---
History of Present Illness H&P Date: 12/30/22 Chief Complaint: Shortness of breath 72-year-old female presenting to the emergency department with concerns for not feeling well and dyspnea. Onset of symptoms was yesterday morning. Patient has noticed left leg weakness. Patient states this is been present since yesterday morning. Patient state in bed is the day yesterday and fell.. Patient does admit to having some shortness of breath. No chest pain. No palpitations. No history of cardiac arrhythmia however patient states he does have a history of mitral valve prolapse. No confusion or speech problems. Chemistry panel is unremarkable. TSH is within normal limits CT of the head is reported as no acute intracranial hemorrhage or midline shift. No significant change from prior. IV TPA since the patient the was outside the window was more than 4-1/2 hour and it was awake up strokelike symptoms. And the risk outweigh benefits. MRI of the brain without is reported as no MRI evidence for recent infarct. I personally reviewed the MRI and I agree with the report. Carotid Duplex was reported as no hemodynamic significant stenosis in either internal carotid artery. EKG is reported as age are fibrillation with rapid ventricular response. Moderate intraventricular conduction delay. Review of Systems REVIEW OF SYSTEMS: CONSTITUTIONAL: No fever, no malaise, no fatigue. HEENT: No recent visual problems or hearing problems. Denied any sore throat. CARDIOVASCULAR: No chest pain, orthopnea, PND, no palpitations, no syncope. PULMONARY: No shortness of breath, no cough, no hemoptysis. GASTROINTESTINAL: No diarrhea, no nausea, no vomiting, no abdominal pain. NEUROLOGICAL: No headaches, no weakness, no numbness. HEMATOLOGICAL: Denies any bleeding or petechiae. GENITOURINARY: Denies any burning micturition, frequency, or urgency. MUSCULOSKELETAL/RHEUMATOLOGICAL: Denies any joint pain, swelling, or any muscle pain. ENDOCRINE: Denies any polyuria or polydipsia. The rest of the 14-point review of systems is negative. Past Medical History Past Medical History: Thyroid Disorder History of Any Multi-Drug Resistant Organisms: None Reported Additional Past Surgical History / Comment(s): SINUS SURGERY R/T FUNGUS. COLONOSCOPY 2005. Past Anesthesia/Blood Transfusion Reactions: Previous Problems w/ Anesthesia Additional Past Anesthesia/Blood Transfusion Reaction / Comment(s): LAST COLONO SCOPY TOOK LONG TIME TO AWAKEN. Past Psychological History: No Psychological Hx Reported Smoking Status: Never smoker Past Alcohol Use History: None Reported Past Drug Use History: None Reported - Past Family History Father Family Medical History: Cancer Medications and Allergies Home Medications Medication Instructions Recorded Confirmed Type Levothyroxine Sodium [Synthroid] 125 mcg PO DAILY 08/29/18 12/30/22 History PARoxetine HCL [Paxil] 30 mg PO DAILY 12/30/22 12/30/22 History Allergies Allergy/AdvReac Type Severity Reaction Status Date / Time No Known Allergies Allergy Verified 12/30/22 08:21 Physical Exam Vitals: Vital Signs Temp Pulse Resp BP Pulse Ox 12/30/22 08:19 112 H 18 110/91 100 12/30/22 07:15 18 12/30/22 06:35 98.2 F 107 H 22 120/80 97 Intake and Output 12/29/22 12/30/22 12/30/22 22:59 06:59 14:59 Other: Weight 113.398 kg PHYSICAL EXAMINATION: GENERAL: The patient is alert and oriented x3, not in any acute distress. Well developed, well nourished. HEENT: Pupils are round and equally reacting to light. EOMI. No scleral icterus. No conjunctival pallor. Normocephalic, atraumatic. No pharyngeal erythema. No thyromegaly. CARDIOVASCULAR: S1 and S2 present. No murmurs, rubs, or gallops. PULMONARY: Chest is clear to auscultation, no wheezing or crackles. ABDOMEN: Soft, nontender, nondistended, normoactive bowel sounds. No palpable organomegaly. MUSCULOSKELETAL: No joint swelling or deformity. EXTREMITIES: No cyanosis, clubbing, or pedal edema. NEUROLOGICAL: Gross neurological examination did not reveal any focal deficits. SKIN: No rashes. Results CBC & Chem 7: 12/30/22 06:50 12/30/22 06:50 Labs: Abnormal Lab Results - Last 24 Hours (Table) 12/30/22 Range/Units 06:50 Glucose 106 H (74-99) mg/dL Calcium 8.1 L (8.4-10.2) mg/dL Total Bilirubin 2.0 H (0.2-1.3) mg/dL Assessment and Plan Assessment: 1. TIA, cause possibly secondary to atrial fibrillation 2. Atrial fibrillation with rapid ventricular response, heart rate currently controlled PLAN: Obtain lipid panel. Change aspirin to 81 mg daily. Start atorvastatin 20 mg at bedtime. After rounding, nursing came and reported that the patient was up walking and his heart rate increased into the 110-120 range. We will increase his metoprolol to 50 mg twice a day today, and to metoprolol succinate 100 mg daily tomorrow. Give 1 dose of metoprolol tartrate 25 mg now. From a neurologic perspective he is cleared to start on anticoagulation. Patient is started on Eliquis 5 mg 1 tablet twice a day by cardiology. He is also on aspirin 325mg daily that was started by ED and will defer the use of antiplatelet to the primary and cardiology team. --patient started on Lipitor 20 g daily at bedtime for second initial prophylaxis - Lipid panel, 2-D echo and the hemoglobin A1c is ordered and spending - Continue neuro checks -- On cardiac monitoring - PT OT and HEALTH POLICY MANAGER are consulted DVT prophylaxis: SCDs/ Eliquis. CODE STATUS; DO NOT RESUSCITATE
[2022-12-31] MEDS ORDERED: METOPROLOL TARTRATE 50 MG TAB PO SCH (21:00)
[2022-12-31] MEDS ORDERED: ATORVASTATIN 20 MG TAB PO SCH (21:00)
[2023-01-01 05:31] VITALS: TEMP 98
[2023-01-01] MEDS: LEVOTHYROXINE 125 MCG TAB PO SCH (06:55)
[2023-01-01 08:34] LABS: Basophils % (A) 0 %; Eosinophils # (A) 0.1 k/uL (0-0.7); Eosinophils % (A) 2 %; HCT 44.7 % (39.0-53.0); HGB 14.8 gm/dL (13.0-17.5); Lymphocytes # (A) 1.6 k/uL (1.0-4.8); Lymphocytes % (A) 26 %; MCH 31.5 pg (25.0-35.0); MCHC 33.1 g/dL (31.0-37.0); MCV 95.2 fL (80.0-100.0); Mean Platelet Volume 7.4; Monocytes # (A) 0.4 k/uL (0-1.0); Monocytes % (A) 7 %; Neutrophils # (A) 3.7 k/uL (1.3-7.7); Neutrophils % (A) 62 %; Platelet Count 216 k/uL (150-450); RDW 12.7 % (11.5-15.5); WBC 5.9 k/uL (3.8-10.6)
[2023-01-01 08:43] LABS: African American GFR (CKD) >90 (>60 ml/min/1.73 sqM); Anion Gap 7 mmol/L; Blood Urea Nitrogen 18 mg/dL (9-20); Calcium 8.7 mg/dL (8.4-10.2); Carbon Dioxide 31 mmol/L (22-30); Chloride 101 mmol/L (98-107); Glucose 101 mg/dL (74-99); Non-African American GFR(CKD) >90 (>60 ml/min/1.73 sqM); Potassium 4.1 mmol/L (3.5-5.1); Sodium 139 mmol/L (137-145)
[2023-01-01] MEDS: PARoxetine 10 MG TAB PO SCH (08:56)
[2023-01-01] MEDS: APIXABAN 5 MG TAB PO SCH (08:56)
[2023-01-01] MEDS ORDERED: METOPROLOL SUCCINATE (ER) 100 MG TAB.ER.24H PO SCH (09:00)
[2023-01-01] MEDS ORDERED: ASPIRIN 81 MG PO SCH (09:00)
[2023-01-01] MEDS ORDERED: METOPROLOL SUCCINATE (ER) 50 MG TAB.ER.24H PO SCH (09:00)
--- NOTE | 2023-01-01 12:06 | P.PN ---
Subjective Progress Note Date: 01/01/23 This is Delbert Rey NP, I'm dictating on behalf of Dr. Pierre's H&P and A&P. Patient was interviewed and examined. Patient is a pleasant 72-year-old male presented to the hospital with complaints of left leg weakness and fatigue, and was felt to have a TIA. Patient was also found to be in atrial fibrillation with rapid ventricular response. It was felt this could possibly be the etiology of the TIA. Patient's heart rates were initially controlled, however with ambulation he went up in the 110-120 range. We change his metoprolol 200 mg daily, with extra doses yesterday to equal that. This morning the patient reports that he is doing good today. Review of his telemetry and vital signs demonstrates a much better controlled heart rate. His echocardiogram was completed and read, demonstrates an LVEF of 35-40%, mild right ventricular dilatation, and mild left atrial dilatation. GENERAL: Well-appearing, well-nourished and in no acute distress. NECK: Supple without JVD or thyromegaly. LUNGS: Breath sounds clear to auscultation bilaterally. Respiration equal and unlabored. No wheezes, rales or rhonchi. HEART: Regular rate and irregular rhythm without murmurs, rubs or gallops. S1 a nd S2 heard. EXTREMITIES: Normal range of motion, no edema. No clubbing or cyanosis. Peripheral pulses intact and strong. VITALS: Temp 98.0, pulse 72, respirations 18, blood pressure 120/84, O2 saturation 98% on room air TELEMETRY: Atrial fibrillation with controlled ventricular rate LABS: White count 5.9, hemoglobin 14.8, platelets 216, sodium 139, potassium 4.1, B1 18, creatinine 0.77, calcium 8.7, triglycerides 123, cholesterol 152, LDL 90, HDL 36.5 TSH 1.35 IMPRESSION: 1. TIA, cause possibly secondary to atrial fibrillation 2. Atrial fibrillation with rapid ventricular response, heart rate currently controlled PLAN: Continue aspirin 81 mg daily. Continue metoprolol succinate 100 mg daily. Continue Eliquis 5 mg twice a day. From a cardiology standpoint the patient may be discharged. Patient should follow-up with Dr. Pierre in one week. Thank you for allowing us to participate in care of this patient. Objective - Vital Signs Vital signs: Vital Signs Temp 98.0 F 05/28/23 08:00 Pulse 72 01/01/23 08:00 Resp 18 01/01/23 08:00 BP 120/84 01/01/23 08:00 Pulse Ox 95 01/01/23 09:29 FiO2 Intake & Output 12/31/22 01/01/23 01/01/23 18:59 06:59 18:59 Intake Total 1290 540 240 Balance 1290 540 240 Weight 111.8 kg Intake: Oral 1290 540 240 Other: Voiding Method Toilet Toilet Toilet # Voids 3 1 # Bowel Movements 1 - Labs CBC & Chem 7: 01/01/23 08:06 01/01/23 08:06 Labs: Abnormal Lab Results - Last 24 Hours (Table) 12/31/22 01/01/23 Range/Units 07:48 08:06 Carbon Dioxide 31 H (22-30) mmol/L Glucose 101 H (74-99) mg/dL HDL Cholesterol 36.50 L (40.00-60.00) mg/dL
[2023-01-01 14:24] VITALS: BP 118/83; PULSE 82
== END 2023-01-01 13:19 | disposition home or self-care (01) | DRG 69 ==
LOC: EC 06:32 → 3SCARD 08:01
PROVIDERS: ADMIT Internal Medicine; ATTEND Internal Medicine
DX: G45.9 Transient cerebral ischemic attack, unspecified (principal); I50.22 Chronic systolic (congestive) heart failure; I48.91 Unspecified atrial fibrillation; E03.9 Hypothyroidism, unspecified; W06.XXXA Fall from bed, initial encounter; I51.7 Cardiomegaly; R53.1 Weakness; Z66 Do not resuscitate; I45.9 Conduction disorder, unspecified; Z79.890 Hormone replacement therapy; Z79.899 Other long term (current) drug therapy
CPT/HCPCS: 36415; 70450; 70551; 71046; 80048; 80053; 80061; 83036; 83605; 83735; 83880; 84439; 84443; 84481; 84484; 85025; 85610; 85730; 93005; 93306; 93880; 94760; 96374; 99291

== ENCOUNTER 2023-01-18 09:52 | Observation (INO) | payer MEDICARE ==
[2023-01-18] MEDS ORDERED: ASPIRIN 81 MG PO STA (10:28)
[2023-01-18 10:43] LABS: Basophils % (A) 1 %; Eosinophils # (A) 0.2 k/uL (0-0.7); Eosinophils % (A) 3 %; HCT 44.5 % (39.0-53.0); HGB 14.8 gm/dL (13.0-17.5); Lymphocytes # (A) 1.8 k/uL (1.0-4.8); Lymphocytes % (A) 22 %; MCH 31.8 pg (25.0-35.0); MCHC 33.4 g/dL (31.0-37.0); MCV 95.3 fL (80.0-100.0); Mean Platelet Volume 7.1; Monocytes # (A) 0.4 k/uL (0-1.0); Monocytes % (A) 5 %; Neutrophils # (A) 5.9 k/uL (1.3-7.7); Neutrophils % (A) 69 %; Platelet Count 239 k/uL (150-450); RBC 4.67 m/uL (4.30-5.90); RDW 12.7 % (11.5-15.5); WBC 8.5 k/uL (3.8-10.6)
[2023-01-18 10:54] LABS: Partial Thromboplastin Time 25.4 sec (22.0-30.0); Prothrombin Time 10.4 sec (9.0-12.0)
--- NOTE | 2023-01-18 11:05 | XR ---
EXAMINATION TYPE: XR chest 2V DATE OF EXAM: 01/18/2023 COMPARISON: 12/30/22 HISTORY: Shortness of breath TECHNIQUE: Frontal and lateral views of the chest are obtained. FINDINGS: Scattered senescent parenchymal changes noted. Hyperinflation compatible with COPD. No evidence for infiltrate. No evidence for atelectasis. Heart size is stable. Mediastinal structures are stable and grossly unremarkable. No evidence for hilar prominence. Degenerative changes dorsal spine. IMPRESSION: 1. No evidence for acute pulmonary disease.
[2023-01-18 11:19] LABS: ALT 35 U/L (4-49); AST 25 U/L (17-59); African American GFR (CKD) >90 (>60 ml/min/1.73 sqM); Alkaline Phosphatase 94 U/L (38-126); Anion Gap 3 mmol/L; Blood Urea Nitrogen 16 mg/dL (9-20); Calcium 8.7 mg/dL (8.4-10.2); Carbon Dioxide 32 mmol/L (22-30); Chloride 105 mmol/L (98-107); Glucose 92 mg/dL (74-99); Magnesium 2.2 mg/dL (1.6-2.3); Non-African American GFR(CKD) >90 (>60 ml/min/1.73 sqM); Potassium 5.2 mmol/L (3.5-5.1); Sodium 140 mmol/L (137-145); Total Bilirubin 1.3 mg/dL (0.2-1.3); Total Protein 6.9 g/dL (6.3-8.2)
[2023-01-18] MEDS ORDERED: SODIUM CHLORIDE 0.9% 1,000 ML IV STA (11:29)
--- NOTE | 2023-01-18 11:51 | ED ---
General Adult HPI - General Chief complaint: Shortness of Breath Stated complaint: SOB Time Seen by Provider: 01/18/23 10:15 Source: patient, family, RN notes reviewed, old records reviewed Mode of arrival: wheelchair Limitations: no limitations - History of Present Illness Initial comments: Patient is a 72-year-old male who presents emergency Department complaining of shortness of breath as well as chest pain. Has been on-and-off again over the last few days to weeks. This is a left-sided chest tightness that is intermittent associated with shortness of breath. Worse with activity. Not present at rest. States he feels weak when at rest. Was recently diagnosed with atrial fibrillation on his last visit and started on medications as well as a blood thinning medication. Denies any recent falls. No focal deficits. Is concerned regarding his chest pain. Has no other acute complaints at this time. Denies any fevers or chills. Denies any coughing. States he was recently on a heart monitor last week interpreted then, and also received a stress test at the lining sewer's office. He is uncertain the results of this time. Presents or further evaluation at this time. States that his symptoms with the exertional chest pain and shortness of breath and been worse over the last few days. Denies any orthopnea or PND. Denies any worsening lower extremity edema. His no other acute complaints at this time. He is compliant with medications. Presents for further evaluation at this time. - Related Data Home Medications Medication Instructions Recorded Confirmed Levothyroxine Sodium [Synthroid] 125 mcg PO DAILY 08/29/18 01/18/23 PARoxetine HCL [Paxil] 30 mg PO DAILY 12/30/22 01/18/23 Previous Rx's Medication Instructions Recorded Apixaban [Eliquis] 5 mg PO BID 30 Days #60 tab 01/01/23 Aspirin [[place] Aspirin EC] 81 mg PO DAILY #30 tab 01/01/23 Atorvastatin [Lipitor] 20 mg PO HS 30 Days #30 tab 01/01/23 Metoprolol Succinate (ER) [Toprol 100 mg PO DAILY tab 01/01/23 XL] Allergies Allergy/AdvReac Type Severity Reaction Status Date / Time No Known Allergies Allergy Verified 01/18/23 13:12 Review of Systems ROS Statement: Those systems with pertinent positive or pertinent negative responses have been documented in the HPI. Review of Systems: CONST: Denies fever EYES: Denies blurry vision ENT: Denies nasal congestion C/V: Endorses exertional chest pain RESP: Endorses exertional dyspnea GI: Denies abdominal pain : Denies dysuria SKIN: Denies rash. MSK: Denies joint pain. NEURO: Denies headache ROS Other: All systems not noted in ROS Statement are negative. Past Medical History Past Medical History: Atrial Fibrillation, Thyroid Disorder History of Any Multi-Drug Resistant Organisms: None Reported Additional Past Surgical History / Comment(s): SINUS SURGERY R/T FUNGUS. COLONOSCOPY 2016. Past Anesthesia/Blood Transfusion Reactions: Previous Problems w/ Anesthesia Additional Past Anesthesia/Blood Transfusion Reaction / Comment(s): LAST COLONOSCOPY TOOK LONG TIME TO AWAKEN. Past Psychological History: No Psychological Hx Reported Smoking Status: Never smoker Past Alcohol Use History: None Reported Past Drug Use History: None Reported - Past Family History Father Family Medical History: Cancer General Exam - General Exam Comments Initial Comments: General: Appears in no acute distress. HEAD: Normal with no signs of head trauma. EYES: PERRLA, EOMI, conjunctiva normal, no discharge. ENT: Hearing grossly intact, normal oropharynx. RESPIRATORY: Clear breath sounds bilaterally. No wheezes, rales, or rhonchi. No hypoxia. No respiratory distress. C/V: Regular rate and rhythm. S1 and S2 auscultated, no edema, peripheral pulses 2+ and intact throughout ABD: Abd is soft, nontender, nondistended EXT: Normal range of motion, no obvious deformity SKIN: No rashes or lesions observed on exposed skin. NEURO: Alert and oriented 4. Limitations: no limitations Course Vital Signs 01/18/23 01/18/23 01/18/23 09:59 10:28 10:38 Temperature 97.8 F Pulse Rate 92 81 Respiratory 22 20 16 Rate Blood Pressure 124/79 123/79 O2 Sat by Pulse 97 98 Oximetry 01/18/23 12:05 Temperature Pulse Rate 93 Respiratory 22 Rate Blood Pressure 129/96 O2 Sat by Pulse 91 L Oximetry Medical Decision Making - Medical Decision Making Was pt. sent in by a medical professional or institution (, PA, ABSORPTION OPERATOR, urgent care, hospital, or senior living...) When possible be specific @ -No Did you speak to anyone other than the patient for history (EMS, parent, family, police, friend...)? What history was obtained from this source @ -No Did you review nursing and triage notes (agree or disagree)? Why? @ -I reviewed and agree with nursing and triage notes Were old charts reviewed (outside hosp., previous admission, EMS record, old EKG, old radiological studies, urgent care reports/EKG's, senior living records)? Report findings @ -Charts reviewed from recent admission in December 2022 Differential Diagnosis (chest pain, altered mental status, abdominal pain women, abdominal pain men, vaginal bleeding, weakness, fever, dyspnea, syncope, headache, dizziness, GI bleed, back pain, seizure, CVA, palpatations, mental health, musculoskeletal)? @ -Differential Chest Pain: Stable Angina, Unstable Angina, STEMI, NSTEMI Aortic Dissection, Pneumothorax, Musculoskeletal, Esophageal Spasm GERD, Cholecystitis, Pancreatitis, Zoster, this is not meant to be an all-inclusive list. EKG interpreted by me (3pts min.). @ -As above X-rays interpreted by me (1pt min.). @ -Chest x-ray reveals no obvious acute cardiopulmonary process. CT interpreted by me (1pt min.). @ -None done U/S interpreted by me (1pt. min.). @ -None done What testing was considered but not performed or refused? (CT, X-rays, U/S, labs)? Why? @ -None What meds were considered but not given or refused? Why? @ -None Did you discuss the management of the patient with other professionals (professionals i.e. , PA, ABSORPTION OPERATOR, lab, RT, psych nurse, mental health social worker, pack worker supervisor, teacher, complaint evaluation officer, case assistant)? Give summary @ -No Was smoking cessation discussed for >3mins.? @ -No Was critical care preformed (if so, how long)? @ -No Were there social determinants of health that impacted care today? How? (Homelessness, low income, unemployed, alcoholism, drug addiction, transportation, low edu. Level, literacy, decrease access to med. care, [place] [facility], rehab)? @ -No Was there de-escalation of care discussed even if they declined (Discuss DNR or withdrawal of care, Hospice)? DNR status @ -No What co-morbidities impacted this encounter? (DM, HTN, Smoking, COPD, CAD, Cancer, CVA, ARF, Chemo, Hep., AIDS, mental health diagnosis, sleep apnea, morbid obesity)? @ -None Was patient admitted / discharged? Hospital course, mention meds given and route, prescriptions, significant lab abnormalities, going to OR and other pertinent info. @ -Based on the patient's presentation and physical exam, I'm concerned for possible cardiac etiology for the patient's current symptoms from we will obtain cardio pulmonary labs. This includes EKG, chest x-ray, cardiac labs. Vital signs within acceptable limits. We will obtain an ambulatory pulse ox as well. He was in agreement this plan. I do not have concern for PE at this time as the patient has been compliant with his anticoagulation Eliquis. EKG showed no signs of acute ischemia. Patient still in A. fib. Patient's labs show a elevated potassium of 5.2 with no EKG changes. Is being treated with IV fluids as the patient's BNP is within normal limits for the patient's age at 89. Troponin is undetectable. Remainder the labs are within acceptable limits. Chest x-ray showed no obvious acute cardio pulmonary process. Patient does have exertional hypoxia with oxygen saturations dropping to 91-93%. Patient will be admitted to the hospital at this time. We discussed his workup. He was in agreement this plan. Cardiology will be consulted. I spoke with the admitting physician, Dr. Izaguirre who accepted the patient. Undiagnosed new problem with uncertain prognosis? @ -No Drug Therapy requiring intensive monitoring for toxicity (Heparin, Nitro, Insu gladis, Cardizem)? @ -No Were any procedures done? @ -No Diagnosis/symptom? @ -Chest pain, exertional dyspnea Acute, or Chronic, or Acute on Chronic? @ -Acute Uncomplicated (without systemic symptoms) or Complicated (systemic symptoms)? @ -Complicated Side effects of treatment? @ -No Exacerbation, Progression, or Severe Exacerbation? @ -No Poses a threat to life or bodily function? How? (Chest pain, [place], NH, pneumonia, PE, COPD, DKA, ARF, appy, cholecystitis, CVA, Diverticulitis, Homicidal, Suicidal, threat to staff... and all critical care pts) @ -yes Diagnosis/symptom? @ -Atrial fibrillation Acute, or Chronic, or Acute on Chronic? @ -Chronic Uncomplicated (without systemic symptoms) or Complicated (systemic symptoms)? @ -Uncomplicated Side effects of treatment? @ -none Exacerbation, Progression, or Severe Exacerbation] @ -no Poses a threat to life or bodily function? @ -no - Lab Data Result diagrams: 01/18/23 10:37 01/18/23 10:37 Lab Results 01/18/23 01/18/23 01/18/23 Range/Units 10:37 10:37 10:37 WBC 8.5 (3.8-10.6) k/uL RBC 4.67 (4.30-5.90) m/uL Hgb 14.8 (13.0-17.5) gm/dL Hct 44.5 (39.0-53.0) % MCV 95.3 (80.0-100.0) fL MCH 31.8 (25.0-35.0) pg MCHC 33.4 (31.0-37.0) g/dL RDW 12.7 (11.5-15.5) % Plt Count 239 (150-450) k/uL MPV 7.1 Neutrophils % 69 % Lymphocytes % 22 % Monocytes % 5 % Eosinophils % 3 % Basophils % 1 % Neutrophils # 5.9 (1.3-7.7) k/uL Lymphocytes # 1.8 (1.0-4.8) k/uL Monocytes # 0.4 (0-1.0) k/uL Eosinophils # 0.2 (0-0.7) k/uL Basophils # 0.0 (0-0.2) k/uL PT 10.4 (9.0-12.0) sec INR 1.0 (<1.2) APTT 25.4 (22.0-30.0) sec Sodium 140 (137-145) mmol/L Potassium 5.2 H (3.5-5.1) mmol/L Chloride 105 (98-107) mmol/L Carbon Dioxide 32 H (22-30) mmol/L Anion Gap 3 mmol/L BUN 16 (9-20) mg/dL Creatinine 0.79 (0.66-1.25) mg/dL Est GFR (CKD-EPI)AfAm >90 (>60 ml/min/1.73 sqM) Est GFR (CKD-EPI)NonAf >90 (>60 ml/min/1.73 sqM) Glucose 92 (74-99) mg/dL Calcium 8.7 (8.4-10.2) mg/dL Magnesium 2.2 (1.6-2.3) mg/dL Total Bilirubin 1.3 (0.2-1.3) mg/dL AST 25 (17-59) U/L ALT 35 (4-49) U/L Alkaline Phosphatase 94 (38-126) U/L Troponin I (0.000-0.034) ng/mL NT-Pro-B Natriuret Pep pg/mL Total Protein 6.9 (6.3-8.2) g/dL Albumin 4.0 (3.5-5.0) g/dL Urine Color Urine Appearance (Clear) Urine pH (5.0-8.0) Ur Specific [place] (1.001-1.035) Urine Protein (Negative) Urine Glucose (UA) (Negative) Urine Ketones (Negative) Urine Blood (Negative) Urine Nitrite (Negative) Urine Bilirubin (Negative) Urine Urobilinogen (<2.0) mg/dL Ur Leukocyte Esterase (Negative) 01/18/23 01/18/23 01/18/23 Range/Units 10:37 10:37 11:52 WBC (3.8-10.6) k/uL RBC (4.30-5.90) m/uL Hgb (13.0-17.5) gm/dL Hct (39.0-53.0) % MCV (80.0-100.0) fL MCH (25.0-35.0) pg MCHC (31.0-37.0) g/dL RDW (11.5-15.5) % Plt Count (150-450) k/uL MPV Neutrophils % % Lymphocytes % % Monocytes % % Eosinophils % % Basophils % % Neutrophils # (1.3-7.7) k/uL Lymphocytes # (1.0-4.8) k/uL Monocytes # (0-1.0) k/uL Eosinophils # (0-0.7) k/uL Basophils # (0-0.2) k/uL PT (9.0-12.0) sec INR (<1.2) APTT (22.0-30.0) sec Sodium (137-145) mmol/L Potassium (3.5-5.1) mmol/L Chloride (98-107) mmol/L Carbon Dioxide (22-30) mmol/L Anion Gap mmol/L BUN (9-20) mg/dL Creatinine (0.66-1.25) mg/dL Est GFR (CKD-EPI)AfAm (>60 ml/min/1.73 sqM) Est GFR (CKD-EPI)NonAf (>60 ml/min/1.73 sqM) Glucose (74-99) mg/dL Calcium (8.4-10.2) mg/dL Magnesium (1.6-2.3) mg/dL Total Bilirubin (0.2-1.3) mg/dL AST (17-59) U/L ALT (4-49) U/L Alkaline Phosphatase (38-126) U/L Troponin I <0.012 (0.000-0.034) ng/mL NT-Pro-B Natriuret Pep 550 pg/mL Total Protein (6.3-8.2) g/dL Albumin (3.5-5.0) g/dL Urine Color Yellow Urine Appearance Clear (Clear) Urine pH 6.5 (5.0-8.0) Ur Specific [place] 1.014 (1.001-1.035) Urine Protein Negative (Negative) Urine Glucose (UA) Negative (Negative) Urine Ketones Negative (Negative) Urine Blood Negative (Negative) Urine Nitrite Negative (Negative) Urine Bilirubin Negative (Negative) Urine Urobilinogen <2.0 (<2.0) mg/dL Ur Leukocyte Esterase Negative (Negative) - EKG Data -: EKG Interpreted by Me EKG Comments: 12-lead Electrocardiogram Interpretation Note EKG was reviewed and interpreted by myself. 12-lead ECG performed at [facility] is interpreted by me as revealing atrial fibrillation at a rate of 81 beats per minute. Stewart is normal. QRS duration is 103 ms, QTc is 434 ms.. There were no ST or T wave abnormalities to suggest myocardial ischemia or injury. R wave progression across the precordium was satisfactory. By my interpretation this EK G is non-diagnostic for acute ischemia. When compared with EKG from December 2022, reveals continued atrial fibrillation but currently not in RVR. Disposition Clinical Impression: Exertional dyspnea, Chest pain, Atrial fibrillation Disposition: ADMITTED IP TO THIS [facility] Condition: Stable Time of Disposition: 12:18
[2023-01-18 12:09] LABS: Appearance,Urine Clear (Clear); Bilirubin,Urine Negative (Negative); Blood,Urine Negative (Negative); Color,Urine Yellow; Glucose,Urine (UA) Negative (Negative); Ketones,Urine Negative (Negative); Leukocyte Esterase,Urine Negative (Negative); Nitrite,Urine Negative (Negative); PH, Urine 6.5 (5.0-8.0); Protein,Urine Negative (Negative); Specific Gravity,Urine 1.014 (1.001-1.035); Urobilinogen,Urine <2.0 mg/dL (<2.0)
[2023-01-18] MEDS ORDERED: NALOXONE 0.4 MG/ML 1 ML VIAL IV PRN (12:32)
[2023-01-18] MEDS: APIXABAN 5 MG TAB PO SCH (21:55)
--- NOTE | 2023-01-19 00:22 | P.HPIM ---
History of Present Illness H&P Date: 01/18/23 Chief Complaint: Chest tightness Patient is a 72-year-old male with a known history of atrial fibrillation on anticoagulation with Eliquis, hypothyroidism presents to ER with complaints of chest pressure and shortness of breath. Patient states that he has been having on and off chest pressure for the past 2 days. He felt like left-sided chest tightness and shortness of breath which is worse with activity. He also feels very weak.. Denies any complaints of headache or dizziness. No nausea vomiting or abdominal pain or diarrhea. Denies any cough or sputum production. Patient was recently diagnosed with atrial fibrillation and was started on anticoagulation with E liquis. Patient had echocardiogram done on 12/30/2022 showed ejection fraction 30% with severe LV dysfunction. RV dilatation. Left atrial enlargement. Patient also has recent TIA thought to be secondary to atrial fibrillation. Chest x-ray showed no evidence of acute pulmonary process. EKG showed atrial fibrillation. Laboratory data WBC 8.5 hemoglobin 14.8 and platelets 239 Sodium 140 potassium 5.2 chloride 105 bicarb is 22 BUN 16 and creatinine 0.79 Troponin x3 negative. Magnesium 2.2 Urinalysis is negative for infection. Review of Systems Constitutional: Patient denies any fever or chills . no Generalized weakness. Abdomen: Patient denied any nausea or vomiting or abd. pain Cardiovascular: Patient denies any complaints of chest pain. Does have chest tightness and shortness of breath with exertion. No worsening leg swelling.. Respiratory: patient denied any cough . no sputum production. No shortness of breath Neurologic: Patient denied any numbness or tingling headache. Musculoskeletal: Patient denies any complaints of joint swelling or deformity. Skin: Negative Psychiatric: Negative Endocrine: No heat or cold intolerance. No recent weight gain. Genitourinary: No dysuria or hematuria. All other 14 point ROS negative except the above Past Medical History Past Medical History: Atrial Fibrillation, Thyroid Disorder History of Any Multi-Drug Resistant Organisms: None Reported Additional Past Surgical History / Comment(s): SINUS SURGERY R/T FUNGUS. COL ONOSCOPY 2015. Past Anesthesia/Blood Transfusion Reactions: Previous Problems w/ Anesthesia Additional Past Anesthesia/Blood Transfusion Reaction / Comment(s): LAST COLONOSCOPY TOOK LONG TIME TO AWAKEN. Past Psychological History: No Psychological Hx Reported Smoking Status: Never smoker Past Alcohol Use History: None Reported Past Drug Use History: None Reported - Past Family History Father Family Medical History: Cancer Medications and Allergies Home Medications Medication Instructions Recorded Confirmed Type Levothyroxine Sodium [Synthroid] 125 mcg PO DAILY 08/29/18 01/18/23 History PARoxetine HCL [Paxil] 30 mg PO DAILY 12/30/22 01/18/23 History Apixaban [Eliquis] 5 mg PO BID 30 Days #60 tab 01/01/23 01/18/23 Rx Aspirin [[place] Aspirin EC] 81 mg PO DAILY #30 tab 01/01/23 01/18/23 Rx Atorvastatin [Lipitor] 20 mg PO HS 30 Days #30 tab 01/01/23 01/18/23 Rx Metoprolol Succinate (ER) [Toprol 100 mg PO DAILY tab 01/01/23 01/18/23 Rx XL] Allergies Allergy/AdvReac Type Severity Reaction Status Date / Time No Known Allergies Allergy Verified 01/18/23 13:12 Physical Exam Vitals: Vital Signs Temp Pulse Resp BP Pulse Ox 01/18/23 15:00 98.6 F 81 18 136/90 98 01/18/23 12:05 93 22 129/96 91 L 01/18/23 10:38 81 16 123/79 98 01/18/23 10:28 20 01/18/23 09:59 97.8 F 92 22 124/79 97 Intake and Output 01/18/23 01/18/23 01/18/23 06:59 14:59 22:59 Other: Weight 113.398 kg PHYSICAL EXAMINATION: Patient is lying in the bed comfortably, no acute distress, awake alert and oriented.. HEENT: Normocephalic. Neck is supple. Pupils reactive. Nostrils clear. Oral cavity is moist. Neck reveals no JVD, carotid bruits, or thyromegaly. CHEST EXAMINATION: Trachea is central. Symmetrical expansion. Lung hall clear to auscultation and percussion. CARDIAC: Normal S1, S2 with no gallops. No murmurs ABDOMEN: Soft. Bowel sounds present. Nontender. No organomegaly. No abdominal bruits. Extremities: Bilateral lower extremity trace edema . No clubbing or cyanosis Neurologically awake, alert, oriented x3 with well-coordinated movements. No focal deficits noted Skin: No rash or skin lesions. Psychiatric: Coperative. Nonsuicidal, Musculoskeletal: No joint swelling or deformity. Normal range of motion. Results CBC & Chem 7: 01/18/23 10:37 01/18/23 10:37 Labs: Abnormal Lab Results - Last 24 Hours (Table) 01/18/23 Range/Units 10:37 Potassium 5.2 H (3.5-5.1) mmol/L Carbon Dioxide 32 H (22-30) mmol/L Thrombosis Risk Factor Assmnt - DVT/VTE Prophylaxis DVT/VTE Prophylaxis: Pharmacologic Prophylaxis ordered Assessment and Plan Assessment: Chest tightness and exertional dyspnea. Persistent atrial fibrillation with controlled ventricular rate. Cardiomyopathy with recent TTE showed EF 30% with severe LV dysfunction. Hypothyroidism DVT prophylaxis Plan: Patient will be continued on telemetry monitoring. Troponin x3 negative. Patient remains in atrial fibrillation. BNP is not elevated at 550. Cardiology was consulted for evaluation. Continue with home medications and follow-up closely. Time with Patient: Greater than 30
[2023-01-19 06:16] LABS: Basophils % (A) 1 %; Eosinophils # (A) 0.2 k/uL (0-0.7); Eosinophils % (A) 3 %; HCT 44.8 % (39.0-53.0); HGB 14.7 gm/dL (13.0-17.5); Lymphocytes # (A) 2.1 k/uL (1.0-4.8); Lymphocytes % (A) 24 %; MCH 31.1 pg (25.0-35.0); MCHC 32.8 g/dL (31.0-37.0); MCV 94.6 fL (80.0-100.0); Mean Platelet Volume 7.2; Monocytes # (A) 0.6 k/uL (0-1.0); Monocytes % (A) 6 %; Neutrophils # (A) 5.6 k/uL (1.3-7.7); Neutrophils % (A) 65 %; Platelet Count 216 k/uL (150-450); RBC 4.74 m/uL (4.30-5.90); RDW 13.1 % (11.5-15.5); WBC 8.7 k/uL (3.8-10.6)
[2023-01-19 06:28] LABS: African American GFR (CKD) >90 (>60 ml/min/1.73 sqM); Anion Gap 3 mmol/L; Blood Urea Nitrogen 14 mg/dL (9-20); Calcium 8.6 mg/dL (8.4-10.2); Carbon Dioxide 33 mmol/L (22-30); Chloride 103 mmol/L (98-107); Glucose 93 mg/dL (74-99); Non-African American GFR(CKD) >90 (>60 ml/min/1.73 sqM); Potassium 4.4 mmol/L (3.5-5.1); Sodium 139 mmol/L (137-145)
[2023-01-19] MEDS ORDERED: LEVOTHYROXINE 125 MCG TAB PO SCH (06:30)
[2023-01-19] MEDS ORDERED: HEPARIN SODIUM,PORCINE 10,000 UNIT in SODIUM CHLORIDE 0.9% 1,000 ML IRRIGATION PRN (07:00)
[2023-01-19] MEDS ORDERED: HEPARIN SODIUM,PORCINE 2,500 UNIT in SODIUM CHLORIDE 0.9% 250 ML IRRIGATION PRN (07:00)
[2023-01-19 08:29] VITALS: RESP 17
[2023-01-19] MEDS ORDERED: NITROGLYCERIN SL TABS 0.4 MG TAB SUBLINGUAL PRN (08:47)
[2023-01-19] MEDS ORDERED: ALPRAZolam 0.5 MG TAB PO PRN (08:47)
[2023-01-19] MEDS ORDERED: ASPIRIN 325 MG TAB PO STA (08:47)
[2023-01-19] MEDS ORDERED: ATORVASTATIN 80 MG TAB PO STA (08:47)
[2023-01-19] MEDS ORDERED: ALPRAZolam 0.25 MG TAB PO PRN (08:47)
[2023-01-19] MEDS ORDERED: METOPROLOL SUCCINATE (ER) 100 MG TAB.ER.24H PO SCH (09:00)
[2023-01-19] MEDS ORDERED: PARoxetine 10 MG TAB PO SCH (09:00)
[2023-01-19] MEDS ORDERED: ASPIRIN 81 MG PO SCH (09:00)
[2023-01-19] MEDS: APIXABAN 5 MG TAB PO SCH (09:14)
--- NOTE | 2023-01-19 10:34 | P.CRDCN ---
History of Present Illness Consult date: 01/19/23 History of present illness: History of present illness: This is a 72-year-old male patient of Dr. Pierre with past medical history of persistent atrial fibrillation, cardiomyopathy with EF of 35-40%, history of recent TIA, dyslipidemia, carotid artery disease. Patient was recently hospitalized at the end of December at which time he presented with TIA symptoms most likely was secondary to atrial fibrillation. Patient was discharged on aspirin, eliquis, Toprol-XL at 100 mg daily and had a follow-up appointment with Dr. Tafoya on . Metoprolol was increased at that time to 1-1/2 tablets daily, a 3 day Holter monitor was ordered as well as Lexiscan stress testing. Patient presented to hospital with complaints of shortness of breath and chest pressure. He does not feel that he is getting any better with either symptom. Chest pressure seems to start when he is walking. He denies feeling palpitations, no dizziness or lightheadedness. No lower extremity edema. He does state that his balance feels off when he first stands up. 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 Discussed option of cardiac catheterization and patient is agreement to move forward. Patient is seen today in the emergency center waiting for a bed on the observation unit EKG atrial fibrillation 2, rate controlled Chest x-ray:no acute process CBC unremarkable. Sodium 139, potassium 4.4, chloride 103, CO2 33, BUN 14 creatinine 0.79. Troponin negative 3. ProBNP 550. Home cardiac medications: Toprol-XL listed on the hospital record is 100 mg d aily, eliquis 5 mg twice daily, aspirin 81 mg daily, Lipitor 20 mg at bedtime, levothyroxine 125 g daily. Echocardiogram 12/30/2022 revealed EF 30% with severe LV dysfunction, increased LV mass, RV dilation, left atrial enlargement. Review Of Systems: At the time of my evaluation: Constitutional: No fever, no chills. No weakness, fatigue or lethargy. EENT: No headache. No dizziness. Lungs: Reports shortness of breath, cough, no sputum production. No wheezing. Reports dyspnea with exertion Cardiovascular: Reports chest pain, no lower extremity edema. No palpitations. No paroxysmal nocturnal dyspnea. No orthopnea. No lightheadedness or dizziness. No syncopal episodes. Abdominal: No abdominal pain. No nausea, vomiting. No diarrhea. No constipation. No bloody or tarry stools. Genitourinary: No dysuria.. No urinary retention. Musculoskeletal: No myalgias. No muscle weakness, no frequent falls. No back pain. No neck pain. Integumentary: No wounds. No rash. No unusual bruising. Neurologic: No aphasia. No facial droop. No change in mentation. Physical examination: Gen: This is a 72-year-old male. He is resting on the ER stretcher and appears to be comfortable at rest. VS: reviewed HEENT: Head is atraumatic, normocephalic. Pupils equal, round. Sclerae is anicteric. NECK: Supple. No JVD. . LUNGS: Clear to auscultation. No wheezes or rhonchi. No intercostal retractions. HEART: Irregular rate and rhythm. Soft systolic murmur. ABDOMEN: Soft No tenderness. EXTREMITIES: Trace pedal edema. No calf tenderness. NEUROLOGICAL: Patient is awake, alert and oriented x3. Assessment: Chest pain, acute coronary syndrome ruled out Persistent atrial fibrillation Cardiomyopathy with EF of 35-40%, unknown type, possibly noncardiac related Dyslipidemia Carotid artery disease Plan: Patient will be scheduled for cardiac catheterization today with Dr. Villafana Resume patient's home cardiac medications No need to repeat echocardiogram Further recommendations to follow based upon clinical course Thank you kindly for this consultation. Nurse practitioner note has been reviewed, I agree with documented findings and plan of care. Patient was seen and examined. Past Medical History Past Medical History: Atrial Fibrillation, Thyroid Disorder History of Any Multi-Drug Resistant Organisms: None Reported Additional Past Surgical History / Comment(s): SINUS SURGERY R/T FUNGUS. COLONOSCOPY 2016. Past Anesthesia/Blood Transfusion Reactions: Previous Problems w/ Anesthesia Additional Past Anesthesia/Blood Transfusion Reaction / Comment(s): LAST COLONOSCOPY TOOK LONG TIME TO AWAKEN. Past Psychological History: No Psychological Hx Reported Smoking Status: Never smoker Past Alcohol Use History: None Reported Past Drug Use History: None Reported - Past Family History Father Family Medical History: Cancer Medications and Allergies Home Medications Medication Instructions Recorded Confirmed Type Levothyroxine Sodium [Synthroid] 125 mcg PO DAILY 08/29/18 01/18/23 History PARoxetine HCL [Paxil] 30 mg PO DAILY 12/30/22 01/18/23 History Apixaban [Eliquis] 5 mg PO BID 30 Days #60 tab 01/01/23 01/18/23 Rx Aspirin [[place] Aspirin EC] 81 mg PO DAILY #30 tab 01/01/23 01/18/23 Rx Atorvastatin [Lipitor] 20 mg PO HS 30 Days #30 tab 01/01/23 01/18/23 Rx Metoprolol Succinate (ER) [Toprol 100 mg PO DAILY tab 01/01/23 01/18/23 Rx XL] Allergies Allergy/AdvReac Type Severity Reaction Status Date / Time No Known Allergies Allergy Verified 01/18/23 13:12 Physical Exam Vitals: Vital Signs Temp Pulse Pulse Resp BP BP Pulse Ox 01/19/23 08:18 97 01/19/23 07:00 97.8 F 84 17 121/78 96 01/19/23 02:01 97.7 F 91 18 128/90 97 01/18/23 20:23 97.6 F 85 16 128/80 97 01/18/23 15:00 98.6 F 81 18 136/90 98 01/18/23 12:05 93 22 129/96 91 L 01/18/23 10:38 81 16 123/79 98 01/18/23 10:28 20 01/18/23 09:59 97.8 F 92 22 124/79 97 Intake and Output 01/18/23 01/19/23 01/19/23 22:59 06:59 14:59 Other: # Voids 1 4 Weight 113.398 kg Results 01/19/23 06:00 01/19/23 06:00 Cardiac Enzymes 01/18/23 01/18/23 01/18/23 Range/Units 10:37 10:37 15:00 AST 25 (17-59) U/L Troponin I <0.012 <0.012 (0.000-0.034) ng/mL 01/18/23 Range/Units 17:48 AST (17-59) U/L Troponin I <0.012 (0.000-0.034) ng/mL Coagulation 01/18/23 Range/Units 10:37 PT 10.4 (9.0-12.0) sec APTT 25.4 (22.0-30.0) sec CBC 01/18/23 01/19/23 Range/Units 10:37 06:00 WBC 8.5 8.7 (3.8-10.6) k/uL RBC 4.67 4.74 (4.30-5.90) m/uL Hgb 14.8 14.7 (13.0-17.5) gm/dL Hct 44.5 44.8 (39.0-53.0) % Plt Count 239 216 (150-450) k/uL Comprehensive Metabolic Panel 01/18/23 01/19/23 Range/Units 10:37 06:00 Sodium 140 139 (137-145) mmol/L Potassium 5.2 H 4.4 (3.5-5.1) mmol/L Chloride 105 103 (98-107) mmol/L Carbon Dioxide 32 H 33 H (22-30) mmol/L BUN 16 14 (9-20) mg/dL Creatinine 0.79 0.79 (0.66-1.25) mg/dL Glucose 92 93 (74-99) mg/dL Calcium 8.7 8.6 (8.4-10.2) mg/dL AST 25 (17-59) U/L ALT 35 (4-49) U/L Alkaline Phosphatase 94 (38-126) U/L Total Protein 6.9 (6.3-8.2) g/dL Albumin 4.0 (3.5-5.0) g/dL Current Medications Generic Name Dose Route Start Last Admin Trade Name Freq PRN Reason Stop Dose Admin Apixaban 5 mg 01/18/23 21:30 01/18/23 21:55 Apixaban 5 Mg Tab PO 5 mg BID [facility] Administration Protocol Aspirin 81 mg 01/19/23 09:00 Aspirin 81 Mg PO DAILY [facility] Atorvastatin Calcium 20 mg 01/19/23 21:00 Atorvastatin 20 Mg Tab PO HS [facility] Levothyroxine Sodium 125 mcg 01/19/23 06:30 01/19/23 05:57 Levothyroxine 125 Mcg Tab PO 125 mcg DAILY@0630 [facility] Administration Metoprolol Succinate 100 mg 01/19/23 09:00 Metoprolol Succinate (Er) 100 Mg Tab.Er.24h PO DAILY [facility] Naloxone HCl 0.2 mg 01/18/23 12:32 Naloxone 0.4 Mg/Ml 1 Ml Vial IV Q2M PRN Opioid Reversal Paroxetine HCl 30 mg 01/19/23 09:00 Paroxetine 10 Mg Tab PO DAILY [facility] Intake and Output 01/18/23 01/19/23 01/19/23 22:59 06:59 14:59 Other: # Voids 1 4 Weight 113.398 kg 01/19/23 06:00 01/19/23 06:00
[2023-01-19] MEDS ORDERED: IV FLUID CONTINUATION 1,000 ML IV ONE (11:00)
[2023-01-19] MEDS ORDERED: HEPARIN SODIUM 1,000 UN/ML (10ML VL) ONE (11:05)
[2023-01-19] MEDS ORDERED: fentaNYL (PF) 50 MCG/ML 2 ML AMP ONE (11:05)
[2023-01-19] MEDS ORDERED: VERAPAMIL 2.5 MG/ML 2 ML AMP ONE (11:05)
[2023-01-19] MEDS ORDERED: fentaNYL (PF) 50 MCG/ML 2 ML AMP IV ONE (11:29)
[2023-01-19] MEDS ORDERED: LIDOCAINE 1% INJ 10MG/ML (5 ML VIAL-PF) SQ ONE (11:31)
[2023-01-19] MEDS ORDERED: VERAPAMIL SYRINGE (5 MG/10 ML) INTRAARTER ONE (11:33)
[2023-01-19] MEDS ORDERED: HEPARIN SODIUM 1,000 UN/ML (10ML VL) IV ONE (11:37)
[2023-01-19] MEDS ORDERED: IOPAMIDOL-370 100ML BTL INJ ONE (11:40)
[2023-01-19] MEDS ORDERED: RX INFO: IV CONTRAST WAS GIVEN 1 EACH MISC MISCELLANE PRN (11:51)
--- NOTE | 2023-01-19 11:57 | P.CARDCATH ---
Date of Procedure: 01/19/23 Description of Procedure: Cardiac Catheterization: The patient is a 72-year-old male who recently was diagnosed with atrial fibrillation and cardiomyopathy, presented with symptoms progressive dyspnea and chest discomfort. He had an MPI as an outpatient that was reported showing inducible ischemia. Recommendations were made regarding cardiac catheterization, the risks and the complications were discussed with the patient who is in full understanding and agreement. Procedure Description: Patient was brought to hemodialysis lab technician in fasting semi-sedated state after receiving Fentanyl and Benadryl achieiving moderate conscious sedated state. Using Xylocaine Anesthesia and Seldinger technique, a 6-Prydeinig sheath was introduced in the right radial artery . Subsequently, selective coronary angiography was performed using a 5-Prydeinig 3.5 bend Clifton catheter. Multiple views of the coronary artery including hemiaxial views were obtained. The right Clifton catheter was used to cross the aortic valve and LVEDP was calculated. Following that, catheter and sheath were removed. Hemostasis was obtained with deployment of TR band . There was no immediate complication. Patient was returned to room in stable condition. Of note, the patient received a total of 5000 units of intravenous heparin as well as intra-arterial verapamil. Findings: Left main: This is a large-size vessel, bifurcating into LAD and circumflex, left main has no obstructive disease LAD: This is a large-size vessel, reaching to the apex, giving rise to a large diagonal branch, the LAD and its branches have no obstructive disease Left circumflex: This is a large dominant vessel, bifurcating distally into PDA and PLV giving rise to 2 obtuse marginal branch of large caliber, the left circumflex and its branches have no obstructive disease RCA: This is a nondominant vessel that has no evidence of obstructive disease Left Ventriculogram: Not performed Hemodynamics: There was no gradient across the aortic valve , LVEDP was 16-20 mmHg Conclusion: 1. Normal coronary arteries 2. Left dominance 3. Mildly elevated LVEDP Recommendations: The patient will continue on guidelines medical therapy for cardiomyopathy and will be evaluated for possible ablation to restore sinus mechanism. The findings and the recommendations were discussed with the patient and the family and they were in full understanding and agreement. Duration of sedation is 10 minutes.
[2023-01-19] MEDS ORDERED: SODIUM CHLORIDE 0.9% 1,000 ML IV SCH (12:00)
[2023-01-19] MEDS ORDERED: SPIRONOLACTONE 25 MG TAB PO SCH (12:30)
[2023-01-19] MEDS ORDERED: SACUBITRIL/VALSARTAN 24 MG-26 MG TABLET PO SCH (12:30)
[2023-01-19 16:53] VITALS: TEMP 97.9
[2023-01-19 17:11] VITALS: BP 123/71; PULSE 61
[2023-01-19] MEDS ORDERED: ATORVASTATIN 20 MG TAB PO SCH (21:00)
[2023-01-20] MEDS ORDERED: ASPIRIN 81 MG PO SCH (09:00)
--- NOTE | 2023-01-21 06:44 | P.DS ---
Providers Date of admission: 01/18/23 12:32 Expected date of discharge: 01/19/23 Attending physician: Jaz Izaguirre Consults: 01/18/23 12:32 Consult Physician Routine Consulting Provider: [facility] Consult Reason/Comments: chest pain Do you want consulting provider notified?: Yes Primary care physician: Supa Macias [facility] Course: Final diagnosis Chest tightness and exertional dyspnea. Ruled out ACS, normal coronary arteries on catheterization Persistent atrial fibrillation with controlled ventricular rate. Cardiomyopathy with recent TTE showed EF 30% with severe LV dysfunction. Hypothyroidism DVT prophylaxis Discharge disposition Patient is being discharged in a stable condition with guarded prognosis to home. Patient will follow-up with Dr. Macias in the outpatient setting upon discharge. Patient is to follow-up with cardiology outpatient for possible ablation as scheduled. Total time taken is greater than 35 minutes. Hospital course This is a 72-year-old male who was recently admitted chest tightness and exertional dyspnea that have been progressively getting worse over the last few days with cardiology following being closely monitored on telemetry monitoring. Patient remains in persistent atrial fibrillation cardiology recommending catheterization which revealed normal coronary arteries and continued atrial fibrillation. Cardiology recommending outpatient follow-up for ablation in the near future, possibly tomorrow per patient. Patient to continue on current medications as mentioned below and also encourage the patient to follow-up with primary care provider. Patient has been cleared by cardiology for discharge today. Please refer to cardiology notes for further HPI. Currently no reports of chest pain, shortness of breath, or palpitations. Patient is afebrile. No reports of nausea or vomiting and patient is tolerating diet. Patient will be discharged home today. Physical exam: Gen: This is a pleasant 72-year-old male who is awake, alert and oriented 3, well-developed, well-nourished, obese HEENT: Head is atraumatic, normocephalic. Pupils equal, round. Sclerae is anicteric. NECK: Supple. No JVD. No lymphadenopathy. No thyromegaly. LUNGS: Clear to auscultation. No wheezes or rhonchi. No intercostal retractions. HEART: S1, S2 are muffled, irregular ABDOMEN: Soft. Bowel sounds are present. No masses. No tenderness. EXTREMITIES: No pedal edema. No calf tenderness. NEUROLOGICAL: Patient is awake, alert and oriented x3. Cranial nerves 2 through 12 are grossly intact. Please refer to medication reconciliation sheet for a list of medications. The impression and plan of care has been dictated by Ree Olivas, Nurse Practitioner as directed. Dr. Dmitriy MD I have performed a history and examination and MDM of this patient, discussed the same with the dictator, and agree with the dictator's assessment and plan as written ,documented as a scribe. Based on total visit time, I have performed more than 50% of the visit. Patient Condition at Discharge: Stable Plan - Discharge Summary New Discharge Prescriptions: New Sacubitril/Valsartan [Entresto 24 mg-26 mg Tablet] 1 each PO BID #60 tab Spironolactone [Aldactone] 25 mg PO DAILY #30 tab Continue Levothyroxine Sodium [Synthroid] 125 mcg PO DAILY PARoxetine HCL [Paxil] 30 mg PO DAILY Metoprolol Succinate (ER) [Toprol XL] 100 mg PO DAILY tab Atorvastatin [Lipitor] 20 mg PO HS 30 Days #30 tab Apixaban [Eliquis] 5 mg PO BID 30 Days #60 tab Discontinued Aspirin [[place] Aspirin EC] 81 mg PO DAILY #30 tab Discharge Medication List Levothyroxine Sodium [Synthroid] 125 mcg PO DAILY 08/29/18 [History] PARoxetine HCL [Paxil] 30 mg PO DAILY 12/30/22 [History] Atorvastatin [Lipitor] 20 mg PO HS 30 Days #30 tab 01/01/23 [Rx] Metoprolol Succinate (ER) [Toprol XL] 100 mg PO DAILY tab 01/01/23 [Rx] Apixaban [Eliquis] 5 mg PO BID 30 Days #60 tab 01/19/23 [Rx] Sacubitril/Valsartan [Entresto 24 mg-26 mg Tablet] 1 each PO BID #60 tab 3 [Rx] Spironolactone [Aldactone] 25 mg PO DAILY #30 tab 01/19/23 [Rx] Follow up Appointment(s)/Referral(s): Sreekanth Pierre MD [STAFF PHYSICIAN] - 01/24/23 10:15 am Supa Macias DO [Primary Care Provider] - 1-2 days Patient Instructions/Handouts: Heart Catheterization (DC) Activity/Diet/Wound Care/Special Instructions: Resume Eliquis on 01/20 Continue to hold aspirin Follow-up with primary care provider on discharge Follow-up cardiology outpatient Continue current diet Discharge Disposition: HOME SELF-CARE
== END 2023-01-19 18:08 | disposition home or self-care (01) ==
LOC: EC 09:52 → 6NMEDSUR 12:32
PROVIDERS: ADMIT Internal Medicine; ATTEND Internal Medicine
DX: R07.89 Other chest pain (principal); R06.09 Other forms of dyspnea; I48.91 Unspecified atrial fibrillation; I42.9 Cardiomyopathy, unspecified; E78.5 Hyperlipidemia, unspecified; E03.9 Hypothyroidism, unspecified; Z86.73 Personal history of transient ischemic attack (TIA), and cerebral infarction without residual deficits; Z80.9 Family history of malignant neoplasm, unspecified; Z98.890 Other specified postprocedural states; Z79.01 Long term (current) use of anticoagulants; Z79.82 Long term (current) use of aspirin; Z79.890 Hormone replacement therapy; Z79.899 Other long term (current) drug therapy
CPT/HCPCS: 99285; 36415; 94760; 93005; 93458; 83880; 80053; 80048; 83735; 84484; 85025 ×2; 85610; 85730; 81003; 71046; G0378 ×2; C1769; C1894; J2001; J3010; J1644; Q9967

== ENCOUNTER 2023-02-20 08:03 | Observation (INO) | payer MEDICARE ==
--- NOTE | 2023-02-20 08:28 | ED ---
SOB HPI - General Chief Complaint: Chest Pain Stated Complaint: SOB,chest pain Time Seen by Provider: 02/20/23 08:14 Source: patient, RN notes reviewed Mode of arrival: ambulatory Limitations: no limitations - History of Present Illness Initial Comments: This is a 72-year-old male who presents to the emergency department for shortness of breath and chest pain. Patient states that this started about 2 days ago. He was admitted here last month for cardiac rule out and had a negative cardiac catheterization. He is scheduled to have a cardiac ablation for atrial fibrillation in March, but is concerned that he can't wait this long. Shortness of breath is worse when trying to lay flat and he states that he has to sleep in a recliner. Denies any swelling in his extremities or weight gain. States that the discomfort in his chest is more of a pressure sensation than a pain. This is left-sided. He has been compliant with his Eliquis. Denies any fevers, chills, sore throat, cough, palpitations, abdominal pain, nausea, vomiting, diarrhea, back pain, or headaches. MD Complaint: shortness of breath, chest pain - Related Data Home Medications Medication Instructions Recorded Confirmed Levothyroxine Sodium [Synthroid] 125 mcg PO DAILY 08/29/18 02/20/23 PARoxetine HCL [Paxil] 30 mg PO DAILY 12/30/22 02/20/23 Sacubitril/Valsartan [Entresto 24 1 tab PO BID 02/20/23 02/20/23 mg-26 mg Tablet] Previous Rx's Medication Instructions Recorded Atorvastatin [Lipitor] 20 mg PO HS 30 Days #30 tab 01/01/23 Metoprolol Succinate (ER) [Toprol 100 mg PO DAILY tab 01/01/23 XL] Apixaban [Eliquis] 5 mg PO BID 30 Days #60 tab 01/19/23 Spironolactone [Aldactone] 25 mg PO DAILY #30 tab 01/19/23 Allergies Allergy/AdvReac Type Severity Reaction Status Date / Time No Known Allergies Allergy Verified 02/20/23 10:45 Review of Systems ROS Statement: Those systems with pertinent positive or pertinent negative responses have been documented in the HPI. ROS Other: All systems not noted in ROS Statement are negative. Past Medical History Past Medical History: Atrial Fibrillation, Thyroid Disorder History of Any Multi-Drug Resistant Organisms: None Reported Additional Past Surgical History / Comment(s): SINUS SURGERY R/T FUNGUS. COLONOSCOPY 2016. Past Anesthesia/Blood Transfusion Reactions: Previous Problems w/ Anesthesia Additional Past Anesthesia/Blood Transfusion Reaction / Comment(s): LAST COLONOSCOPY TOOK LONG TIME TO AWAKEN. Past Psychological History: No Psychological Hx Reported Smoking Status: Never smoker Past Alcohol Use History: None Reported Past Drug Use History: None Reported - Past Family History Father Family Medical History: Cancer General Exam Limitations: no limitations General appearance: alert, in no apparent distress Head exam: Present: atraumatic, normocephalic, normal inspection Respiratory exam: Present: decreased breath sounds, prolonged expiratory Cardiovascular Exam: Present: regular rate, normal rhythm, normal heart sounds. Absent: systolic murmur, diastolic murmur, rubs, gallop, clicks Neurological exam: Present: alert, oriented X3, CN II-XII intact Psychiatric exam: Present: normal affect, normal mood Skin exam: Present: warm, dry, intact, normal color. Absent: rash Course Vital Signs 02/20/23 02/20/23 02/20/23 08:08 09:40 10:07 Temperature 98 F Pulse Rate 102 H 102 H 107 H Respiratory 18 26 H 20 Rate Blood Pressure 119/72 98/65 O2 Sat by Pulse 96 90 L 99 Oximetry 02/20/23 02/20/23 02/20/23 11:18 13:45 14:40 Temperature Pulse Rate 95 97 64 Respiratory 20 18 20 Rate Blood Pressure 120/85 94/58 O2 Sat by Pulse 95 96 95 Oximetry Medical Decision Making - Medical Decision Making This is a 72-year-old male who presents to the emergency department for chest pain and shortness of breath. Was pt. sent in by a medical professional or institution? @ -No Did you speak to anyone other than the patient for history? @ -No Did you review nursing and triage notes? @ -Yes, and I agree, it is accurate with regards to the patient's symptoms. Were old charts reviewed? @ -Yes, discharge summary from 01/18-01/19 when the patient was admitted for chest pain and had a negative cardiac workup with a normal cardiac catheterization. Differential Diagnosis? @ -Differential Dyspnea: Coronary syndrome, arrhythmia, tamponade, asthma, COPD, pulmonary embolism, pneumonia, pneumothorax, pulmonary effusion, anaphylaxis, diabetic ketoacidosis, flailed chest, pulmonary contusion, diaphragmatic rupture, anemia, neuromuscular, this is not meant to be an all-inclusive list. EKG interpreted by me (3pts min.)? @ -EKG interpreted by me demonstrating the following: Atrial flutter. Ventricular rate 89 beats per minute, QRS duration 97 ms, QTC 406 ms. X-rays interpreted by me (1pt min.)? @ -Chest x-ray obtained, my interpretation identifies no localized consolidations or infiltrates. CT interpreted by me (1pt min.)? @ -Not obtained U/S interpreted by me (1pt. min.)? @ -Not obtained What testing was considered but not performed? (CT, X-rays, U/S, labs)? Why? @ -None What meds were considered but not given? Why? @ -None Did you discuss the management of the patient with other professionals? @ -Yes, Dr. Coburn, who accepts the patient for admission. Did you reconcile home meds? @ -No Was smoking cessation discussed for >3mins.? @ -No Was critical care preformed (if so, how long)? @ -No Were there social determinants of health that impacted care today? How? (Homelessness, low income, unemployed, alcoholism, drug addiction, transportation, low edu. Level, literacy, decrease access to med. care, senior care, re hab)? @ -No Was there de-escalation of care discussed even if they declined? (Discuss DNR or withdrawal of care, Hospice)? @ -No What co-morbidities impacted this encounter? (DM, HTN, Smoking, COPD, CAD, Cancer, CVA, Hep., AIDS, mental health diagnosis, sleep apnea, morbid obesity)? @ -Atrial fibrillation, thyroid disorder Was patient admitted / discharged? @ -Admitted. Lab work obtained and found to be nonactionable. Chest x-ray reveals no acute process. Patient remained in atrial fibrillation during the entirety of this visit in the emergency department. We did ambulate the patient, and his oxygen saturation dropped to 88-89%. After a short period of a mbulation, he was exhibiting respiratory distress in terms of accessory muscle use and speaking in 1-2 word sentences. He then started to complain of increasing chest pressure. Patient does live alone, and is scared about going home in his current state. Given that the patient is very short of breath and symptomatic with the atrial fibrillation, patient admitted to medicine for further evaluation with cardiology consult. Serial troponins ordered as well. Undiagnosed new problem with uncertain prognosis? @ -None Drug Therapy requiring intensive monitoring for toxicity (Heparin, Nitro, Insulin, Cardizem)? @ -None Were any procedures done? @ -None Diagnosis/symptom? @ -Dyspnea, chest pressure Acute, or Chronic, or Acute on Chronic? @ -Acute Uncomplicated (without systemic symptoms) or Complicated (systemic symptoms)? @ -Complicated Side effects of treatment? @ -None Exacerbation, Progression, or Severe Exacerbation] @ -Not applicable Poses a threat to life or bodily function? @ -Yes Diagnosis/symptom? @ -Atrial fibrillation Acute, or Chronic, or Acute on Chronic? @ -Chronic Uncomplicated (without systemic symptoms) or Complicated (systemic symptoms)? @ -Complicated Side effects of treatment? @ -None Exacerbation, Progression, or Severe Exacerbation] @ -Progression Poses a threat to life or bodily function? @ -Yes This case was discussed in detail with the attending ED physician, Dr. Durham. Presentation, findings, and treatment plan discussed in detail as well. - Lab Data Result diagrams: 02/20/23 08:27 02/20/23 08:27 Lab Results 02/20/23 02/20/23 02/20/23 Range/Units 08:27 08:27 08:27 WBC 8.2 (3.8-10.6) k/uL RBC 5.00 (4.30-5.90) m/uL Hgb 15.8 (13.0-17.5) gm/dL Hct 47.7 (39.0-53.0) % MCV 95.4 (80.0-100.0) fL MCH 31.6 (25.0-35.0) pg MCHC 33.2 (31.0-37.0) g/dL RDW 12.6 (11.5-15.5) % Plt Count 234 (150-450) k/uL MPV 7.0 Neutrophils % 69 % Lymphocytes % 20 % Monocytes % 7 % Eosinophils % 2 % Basophils % 1 % Neutrophils # 5.7 (1.3-7.7) k/uL Lymphocytes # 1.7 (1.0-4.8) k/uL Monocytes # 0.5 (0-1.0) k/uL Eosinophils # 0.2 (0-0.7) k/uL Basophils # 0.0 (0-0.2) k/uL PT 10.1 (9.0-12.0) sec INR 1.0 (<1.2) APTT 25.7 (22.0-30.0) sec Sodium 137 (137-145) mmol/L Potassium 4.5 (3.5-5.1) mmol/L Chloride 104 (98-107) mmol/L Carbon Dioxide 24 (22-30) mmol/L Anion Gap 9 mmol/L BUN 18 (9-20) mg/dL Creatinine 0.76 (0.66-1.25) mg/dL Est GFR (CKD-EPI)AfAm >90 (>60 ml/min/1.73 sqM) Est GFR (CKD-EPI)NonAf >90 (>60 ml/min/1.73 sqM) Glucose 98 (74-99) mg/dL Calcium 9.1 (8.4-10.2) mg/dL Magnesium 2.0 (1.6-2.3) mg/dL Total Bilirubin 1.9 H (0.2-1.3) mg/dL AST 28 (17-59) U/L ALT 34 (4-49) U/L Alkaline Phosphatase 97 (38-126) U/L Troponin I (0.000-0.034) ng/mL NT-Pro-B Natriuret Pep pg/mL Total Protein 7.5 (6.3-8.2) g/dL Albumin 4.4 (3.5-5.0) g/dL TSH 0.944 (0.465-4.680) mIU/L Influenza Type A (PCR) (Not Detectd) Influenza Type B (PCR) (Not Detectd) RSV (PCR) (Not Detectd) SARS-CoV-2 (PCR) (Not Detectd) 02/20/23 02/20/23 02/20/23 Range/Units 08:27 08:27 08:47 WBC (3.8-10.6) k/uL RBC (4.30-5.90) m/uL Hgb (13.0-17.5) gm/dL Hct (39.0-53.0) % MCV (80.0-100.0) fL MCH (25.0-35.0) pg MCHC (31.0-37.0) g/dL RDW (11.5-15.5) % Plt Count (150-450) k/uL MPV Neutrophils % % Lymphocytes % % Monocytes % % Eosinophils % % Basophils % % Neutrophils # (1.3-7.7) k/uL Lymphocytes # (1.0-4.8) k/uL Monocytes # (0-1.0) k/uL Eosinophils # (0-0.7) k/uL Basophils # (0-0.2) k/uL PT (9.0-12.0) sec INR (<1.2) APTT (22.0-30.0) sec Sodium (137-145) mmol/L Potassium (3.5-5.1) mmol/L Chloride (98-107) mmol/L Carbon Dioxide (22-30) mmol/L Anion Gap mmol/L BUN (9-20) mg/dL Creatinine (0.66-1.25) mg/dL Est GFR (CKD-EPI)AfAm (>60 ml/min/1.73 sqM) Est GFR (CKD-EPI)NonAf (>60 ml/min/1.73 sqM) Glucose (74-99) mg/dL Calcium (8.4-10.2) mg/dL Magnesium (1.6-2.3) mg/dL Total Bilirubin (0.2-1.3) mg/dL AST (17-59) U/L ALT (4-49) U/L Alkaline Phosphatase (38-126) U/L Troponin I <0.012 (0.000-0.034) ng/mL NT-Pro-B Natriuret Pep 419 pg/mL Total Protein (6.3-8.2) g/dL Albumin (3.5-5.0) g/dL TSH (0.465-4.680) mIU/L Influenza Type A (PCR) Not Detected (Not Detectd) Influenza Type B (PCR) Not Detected (Not Detectd) RSV (PCR) Not Detected (Not Detectd) SARS-CoV-2 (PCR) Not Detected (Not Detectd) - Radiology Data Radiology results: report reviewed, image reviewed Disposition Clinical Impression: Atrial fibrillation, Dyspnea, Chest pressure Disposition: ADMITTED IP TO THIS HOSP
[2023-02-20 08:49] LABS: Basophils % (A) 1 %; Eosinophils # (A) 0.2 k/uL (0-0.7); Eosinophils % (A) 2 %; HCT 47.7 % (39.0-53.0); HGB 15.8 gm/dL (13.0-17.5); Lymphocytes # (A) 1.7 k/uL (1.0-4.8); Lymphocytes % (A) 20 %; MCH 31.6 pg (25.0-35.0); MCHC 33.2 g/dL (31.0-37.0); MCV 95.4 fL (80.0-100.0); Monocytes # (A) 0.5 k/uL (0-1.0); Monocytes % (A) 7 %; Neutrophils # (A) 5.7 k/uL (1.3-7.7); Neutrophils % (A) 69 %; Platelet Count 234 k/uL (150-450); RDW 12.6 % (11.5-15.5); WBC 8.2 k/uL (3.8-10.6)
[2023-02-20 08:56] LABS: Partial Thromboplastin Time 25.7 sec (22.0-30.0); Prothrombin Time 10.1 sec (9.0-12.0)
[2023-02-20 08:58] LABS: ALT 34 U/L (4-49); AST 28 U/L (17-59); African American GFR (CKD) >90 (>60 ml/min/1.73 sqM); Albumin 4.4 g/dL (3.5-5.0); Alkaline Phosphatase 97 U/L (38-126); Anion Gap 9 mmol/L; Blood Urea Nitrogen 18 mg/dL (9-20); Calcium 9.1 mg/dL (8.4-10.2); Carbon Dioxide 24 mmol/L (22-30); Chloride 104 mmol/L (98-107); Glucose 98 mg/dL (74-99); Non-African American GFR(CKD) >90 (>60 ml/min/1.73 sqM); Potassium 4.5 mmol/L (3.5-5.1); Sodium 137 mmol/L (137-145); Total Bilirubin 1.9 mg/dL (0.2-1.3); Total Protein 7.5 g/dL (6.3-8.2)
--- NOTE | 2023-02-20 09:09 | XR ---
EXAMINATION TYPE: XR chest 2V DATE OF EXAM: 02/20/2023 COMPARISON: 01/18/2023 TECHNIQUE: PA and lateral views submitted. HISTORY: Shortness of breath FINDINGS: The lungs are clear and there is no pneumothorax, pleural effusion, or focal pneumonia. The heart is enlarged and no overt failure. Osseous structures demonstrate hypertrophic and degenerative changes of the spine. IMPRESSION: 1. No acute process. 2. Cardiomegaly.
[2023-02-20] MEDS ORDERED: NITROGLYCERIN SL TABS 0.4 MG TAB SUBLINGUAL STA (09:51)
[2023-02-20] MEDS ORDERED: NALOXONE 0.4 MG/ML 1 ML VIAL IV PRN (10:29)
[2023-02-20] MEDS ORDERED: ONDANSETRON 4 MG/2 ML VIAL IVP PRN (10:29)
[2023-02-20] MEDS ORDERED: HYDROcodone/APAP 5-325MG 1 EACH TAB PO PRN (10:29)
[2023-02-20] MEDS ORDERED: ACETAMINOPHEN TAB 325 MG TAB PO PRN (10:29)
[2023-02-20] MEDS: APIXABAN 5 MG TAB PO SCH (20:05)
[2023-02-20] MEDS: SACUBITRIL/VALSARTAN 24 MG-26 MG TABLET PO SCH (20:05)
[2023-02-20] MEDS ORDERED: ATORVASTATIN 20 MG TAB PO SCH (21:00)
[2023-02-21] MEDS ORDERED: LEVOTHYROXINE 125 MCG TAB PO SCH (06:30)
[2023-02-21 07:33] VITALS: BP 118/86; PULSE 95; RESP 18; TEMP 97.4
[2023-02-21] MEDS: APIXABAN 5 MG TAB PO SCH (08:40)
[2023-02-21] MEDS: SACUBITRIL/VALSARTAN 24 MG-26 MG TABLET PO SCH (08:40)
[2023-02-21] MEDS ORDERED: FUROSEMIDE 20 MG TAB PO SCH (09:00)
[2023-02-21] MEDS ORDERED: METOPROLOL SUCCINATE (ER) 100 MG TAB.ER.24H PO SCH (09:00)
[2023-02-21] MEDS ORDERED: METOPROLOL SUCCINATE (ER) 50 MG TAB.ER.24H PO SCH (09:00)
[2023-02-21] MEDS ORDERED: SPIRONOLACTONE 25 MG TAB PO SCH (09:00)
[2023-02-21] MEDS ORDERED: PARoxetine 10 MG TAB PO SCH (09:00)
--- NOTE | 2023-02-21 10:01 | P.CRDCN ---
History of Present Illness History of present illness: HISTORY OF PRESENT ILLNESS: This is a 72-year-old male with a past medical history significant for persistent atrial fibrillation, nonischemic cardiomyopathy, TIA, hyperlipidemia, carotid stenosis, and normal coronary arteries. Patient follows in the office with Dr. Pierre. We have been asked to see the patient in consultation for shortness of breath and atrial fibrillation. Patient examined at the bedside. Patient states he presented to the hospital with a chief complaint of shortness of breath and chest pressure. The patient states he has been having inte rmittent chest discomfort but states over the last 3 days it was constant. He states that he received [place] at 3:00 this morning which helped his pain. He states when he lays flat he has shortness of breath. The patient does report he has been out of his Aldactone for approximately 8 days. The patient is scheduled for A. fib ablation in March 28. The patient states he is usually fairly active and states over the weekend he was cleaning his carpets in which cause him to feel more short of breath. The patient states he has been emailing up-and-down the hallway this morning without shortness of breath or chest discomfort. Patient's vital signs are stable. * EKG reveals atrial fibrillation with controlled ventricular rate * Chest xray negative for acute process. Cardiomegaly. * Laboratory data: WBC 8.2. Hemoglobin 15.8. Platelet count 234. Sodium 137. Potassium 4.5. BUN 18. Creatinine 0.76. Magnesium 2.0. Troponin negative 3. ProBNP 419. TSH 0.944. * Current home cardiac medications include Eliquis 5mg BID, Entresto 24-26mg BID, metoprolol succinate 150 mg daily, and Lipitor 20 mg at night * Most recent echocardiogram obtained in December 2022 revealed ejection fraction 35-40%, mild TR, RV dilation, RVSP 25 mmHg * Patient underwent Lexiscan stress test in January 2023 revealing ejection fraction 35-40%, partially inferior wall defect * Cardiac catheterization history: January 2023 revealing normal coronary arteries REVIEW OF SYSTEMS: At the time of my exam: CONSTITUTIONAL: Denies fever or chills. HEENT: Denies blurred vision, vision changes, or eye pain. Denies hemoptysis CARDIOVASCULAR: Denies chest pain. Denies orthopnea. Denies PND. Denies palpitations RESPIRATORY: Denies shortness of breath. GASTROINTESTINAL: Denies abdominal pain. Denies nausea or vomiting. HEMATOLOGIC: Denies bleeding disorders. GENITOURINARY: Denies any blood in urine. SKIN: Denies pruitis. Denies rash. PHYSICAL EXAM: VITAL SIGNS: Reviewed. GENERAL: Well-developed in no acute distress. HEENT: Head is normocephalic. Pupils are equal, round. Sclerae anicteric. Mucous membranes of the mouth are moist. Neck supple. Positive JVD. LUNGS: Respirations even and unlabored. Lungs essentially clear to auscultation bilaterally. HEART: Irregular rate and rhythm. S1 and S2 heard. ABDOMEN: Soft. Nondistended. Nontender. EXTREMITIES: Normal range of motion. No clubbing or cyanosis. Peripheral pulses intact. No lower extremity edema NEUROLOGIC: Awake and alert. Oriented x 3. ASSESSMENT: Shortness of breath Chest pain, troponins negative 3, acute coronary event ruled out Persistent atrial fibrillation Nonischemic cardiomyopathy, ejection fraction 35-40% Normal coronary arteries, per cardiac catheterization, January 2023 Hyperlipidemia History of TIA History of carotid stenosis PLAN: Continue current cardiac medications Continue metoprolol succinate 150 mg in the morning. Add an additional dose of 25 mg at night Continue Aldactone 25 mg daily. Patient states he recently ran out of this medication and has not been taking it. Add Lasix 20 mg daily for 5 days Patient scheduled for atrial fibrillation ablation on 03/28/2023 Patient instructed to not over do his physical activity at home (such as cleaning carpets as he did this weekend) secondary to cardiomyopathy and atrial fibrillation. Patient verbalized understanding Patient may be discharged home this afternoon from a cardiac standpoint Nurse practitioner note has been reviewed by physician. Signing provider agrees with the documented findings, assessment, and plan of care. Past Medical History Past Medical History: Atrial Fibrillation, Thyroid Disorder History of Any Multi-Drug Resistant Organisms: None Reported Past Surgical History: Heart Catheterization Additional Past Surgical History / Comment(s): SINUS SURGERY R/T FUNGUS. COLONOSCOPY 2016. Past Anesthesia/Blood Transfusion Reactions: Previous Problems w/ Anesthesia Additional Past Anesthesia/Blood Transfusion Reaction / Comment(s): LAST COLONOSCOPY TOOK LONG TIME TO AWAKEN. Past Psychological History: No Psychological Hx Reported Smoking Status: Never smoker Past Alcohol Use History: None Reported Past Drug Use History: None Reported - Past Family History Father Family Medical History: Cancer Medications and Allergies Home Medications Medication Instructions Recorded Confirmed Type Levothyroxine Sodium [Synthroid] 125 mcg PO DAILY 08/29/18 02/20/23 History PARoxetine HCL [Paxil] 30 mg PO DAILY 12/30/22 02/20/23 History Atorvastatin [Lipitor] 20 mg PO HS 30 Days #30 tab 01/01/23 02/20/23 Rx Metoprolol Succinate (ER) [Toprol 100 mg PO DAILY tab 01/01/23 02/20/23 Rx XL] Apixaban [Eliquis] 5 mg PO BID 30 Days #60 tab 01/19/23 02/20/23 Rx Spironolactone [Aldactone] 25 mg PO DAILY #30 tab 01/19/23 02/20/23 Rx Sacubitril/Valsartan [Entresto 24 1 tab PO BID 02/20/23 02/20/23 History mg-26 mg Tablet] Allergies Allergy/AdvReac Type Severity Reaction Status Date / Time No Known Allergies Allergy Verified 02/20/23 10:45 Physical Exam Vitals: Vital Signs Temp Pulse Pulse Resp BP BP Pulse Ox 02/21/23 02:00 98.3 F 93 15 101/72 96 02/20/23 20:00 16 02/20/23 19:02 97.6 F 87 16 120/70 96 02/20/23 18:30 93 20 130/82 97 02/20/23 17:58 90 02/20/23 14:40 64 20 94/58 95 02/20/23 13:45 97 18 96 02/20/23 11:18 95 20 120/85 95 02/20/23 10:07 107 H 20 98/65 99 02/20/23 09:40 102 H 26 H 90 L 02/20/23 08:08 98 F 102 H 18 119/72 96 Intake and Output 02/20/23 02/21/23 02/21/23 22:59 06:59 14:59 Other: Voiding Method Toilet # Voids 1 2 Weight 113.398 kg Results 02/20/23 08:27 02/20/23 08:27 Cardiac Enzymes 02/20/23 02/20/23 02/20/23 Range/Units 08:27 08:27 12:22 AST 28 (17-59) U/L Troponin I <0.012 <0.012 (0.000-0.034) ng/mL 02/20/23 Range/Units 14:37 AST (17-59) U/L Troponin I <0.012 (0.000-0.034) ng/mL Coagulation 02/20/23 Range/Units 08:27 PT 10.1 (9.0-12.0) sec APTT 25.7 (22.0-30.0) sec CBC 02/20/23 Range/Units 08:27 WBC 8.2 (3.8-10.6) k/uL RBC 5.00 (4.30-5.90) m/uL Hgb 15.8 (13.0-17.5) gm/dL Hct 47.7 (39.0-53.0) % Plt Count 234 (150-450) k/uL Comprehensive Metabolic Panel 02/20/23 Range/Units 08:27 Sodium 137 (137-145) mmol/L Potassium 4.5 (3.5-5.1) mmol/L Chloride 104 (98-107) mmol/L Carbon Dioxide 24 (22-30) mmol/L BUN 18 (9-20) mg/dL Creatinine 0.76 (0.66-1.25) mg/dL Glucose 98 (74-99) mg/dL Calcium 9.1 (8.4-10.2) mg/dL AST 28 (17-59) U/L ALT 34 (4-49) U/L Alkaline Phosphatase 97 (38-126) U/L Total Protein 7.5 (6.3-8.2) g/dL Albumin 4.4 (3.5-5.0) g/dL Current Medications Generic Name Dose Route Start Last Admin Trade Name Freq PRN Reason Stop Dose Admin Acetaminophen 650 mg 02/20/23 10:29 Acetaminophen Tab 325 Mg Tab PO Q6HR PRN Mild Pain or Fever > 100.5 Hydrocodone Bitart/Acetaminophen 1 each 02/20/23 10:29 02/21/23 03:41 Hydrocodone/Apap 5-325mg 1 Each Tab PO 1 each Q4HR PRN Administration Moderate Pain (Scale 4 to 6) Apixaban 5 mg 02/20/23 21:00 02/20/23 20:05 Apixaban 5 Mg Tab PO 5 mg BID MONAE Administration Protocol Atorvastatin Calcium 20 mg 02/20/23 21:00 02/20/23 20:05 Atorvastatin 20 Mg Tab PO 20 mg HS MONAE Administration Levothyroxine Sodium 125 mcg 02/21/23 06:30 02/21/23 05:48 Levothyroxine 125 Mcg Tab PO 125 mcg DAILY@0630 MONAE Administration Metoprolol Succinate 100 mg 02/21/23 09:00 Metoprolol Succinate (Er) 100 Mg Tab.Er.24h PO DAILY MONAE Naloxone HCl 0.2 mg 02/20/23 10:29 Naloxone 0.4 Mg/Ml 1 Ml Vial IV Q2M PRN Opioid Reversal Ondansetron HCl 4 mg 02/20/23 10:29 Ondansetron 4 Mg/2 Ml Vial IVP Q8HR PRN Nausea And Vomiting Paroxetine HCl 30 mg 02/21/23 09:00 Paroxetine 10 Mg Tab PO DAILY MONAE Sacubitril/Valsartan 1 each 02/20/23 21:00 02/20/23 20:05 Sacubitril/Valsartan 24 Mg-26 Mg Tablet PO 1 each BID MONAE Administration Spironolactone 25 mg 02/21/23 09:00 Spironolactone 25 Mg Tab PO DAILY [facility] Intake and Output 02/20/23 02/21/23 02/21/23 22:59 06:59 14:59 Other: Voiding Method Toilet # Voids 1 2 Weight 113.398 kg 02/20/23 08:27 02/20/23 08:27
--- NOTE | 2023-02-21 13:34 | P.HPIM ---
History of Present Illness H&P Date: 02/20/23 History of present illness; patient 72-year-old gentleman with past medical hist ory significant for persistent atrial fibrillation, nonischemic cardiomyopathy, TIA, hyperlipidemia, carotid stenosis, and normal coronary arteries presented to the hospital with a chief complaint of shortness of breath and chest pressure. Patient stated that he has been having chest pains, central in location, intermittent, pressure-like for the last few days. Patient complaining of o rthopnea as well. Denies any swelling of feet. Denies any palpitations. Because of chest pain, patient came to the ER Initial lab work done in the ER showed WBC 8.2, hemoglobin 15.8, platelet count was 34, sodium 1 4.5, BUN 18, creatinine 0.76, AST 28 troponin 0.012 Chest x-ray negative for acute cardiopulmonary process Patient was admitted to medicine service REVIEW OF SYSTEMS: CONSTITUTIONAL: No fever, no malaise, no fatigue. HEENT: No recent visual problems or hearing problems. Denied any sore throat. CARDIOVASCULAR: As mentioned in HPI PULMONARY: No shortness of breath, no cough, no hemoptysis. GASTROINTESTINAL: No diarrhea, no nausea, no vomiting, no abdominal pain. NEUROLOGICAL: No headaches, no weakness, no numbness. HEMATOLOGICAL: Denies any bleeding or petechiae. GENITOURINARY: Denies any burning micturition, frequency, or urgency. MUSCULOSKELETAL/RHEUMATOLOGICAL: Denies any joint pain, swelling, or any muscle pain. ENDOCRINE: Denies any polyuria or polydipsia. The rest of the 14-point review of systems is negative. PHYSICAL EXAMINATION: GENERAL: The patient is alert and oriented x3, not in any acute distress. Well developed, well nourished. HEENT: Pupils are round and equally reacting to light. EOMI. No scleral icterus. No conjunctival pallor. Normocephalic, atraumatic. No pharyngeal erythema. No thyromegaly. CARDIOVASCULAR: S1 and S2 present. No murmurs, rubs, or gallops. PULMONARY: Chest is clear to auscultation, no wheezing or crackles. ABDOMEN: Soft, nontender, nondistended, normoactive bowel sounds. No palpable organomegaly. MUSCULOSKELETAL: No joint swelling or deformity. EXTREMITIES: No cyanosis, clubbing, or pedal edema. NEUROLOGICAL: Gross neurological examination did not reveal any focal deficits. SKIN: No rashes. Assessment and plan Shortness of breath Persistent atrial fibrillation Hypertension Hyperlipidemia CHF Monitor vital signs Monitor CBC Monitor CMP Continue telemetry monitoring Resume Eliquis and Toprol Resume enteresto Consult cardiology Labs and medication were reviewed.. Continue same treatment. Continue with symptomatic treatment. Resume home medication. Monitor labs and vitals. DVT and GI prophylaxis. Further recommendations as per clinical course of the patient Past Medical History Past Medical History: Atrial Fibrillation, Thyroid Disorder History of Any Multi-Drug Resistant Organisms: None Reported Additional Past Surgical History / Comment(s): SINUS SURGERY R/T FUNGUS. COLONOSCOPY 2016. Past Anesthesia/Blood Transfusion Reactions: Previous Problems w/ Anesthesia Additional Past Anesthesia/Blood Transfusion Reaction / Comment(s): LAST COLONOSCOPY TOOK LONG TIME TO AWAKEN. Past Psychological History: No Psychological Hx Reported Smoking Status: Never smoker Past Alcohol Use History: None Reported Past Drug Use History: None Reported - Past Family History Father Family Medical History: Cancer Medications and Allergies Home Medications Medication Instructions Recorded Confirmed Type Levothyroxine Sodium [Synthroid] 125 mcg PO DAILY 08/29/18 02/20/23 History PARoxetine HCL [Paxil] 30 mg PO DAILY 12/30/22 02/20/23 History Atorvastatin [Lipitor] 20 mg PO HS 30 Days #30 tab 01/01/23 02/20/23 Rx Apixaban [Eliquis] 5 mg PO BID 30 Days #60 tab 01/19/23 02/20/23 Rx Sacubitril/Valsartan [Entresto 24 1 tab PO BID 02/20/23 02/20/23 History mg-26 mg Tablet] Furosemide [Lasix] 20 mg PO DAILY #5 tab 02/21/23 Rx Metoprolol Succinate (ER) [Toprol 25 mg PO HS #90 tab 02/21/23 Rx XL] Metoprolol Succinate (ER) [Toprol 150 mg PO DAILY #90 tab 02/21/23 Rx XL] Spironolactone [Aldactone] 25 mg PO DAILY #90 tab 02/21/23 Rx Allergies Allergy/AdvReac Type Severity Reaction Status Date / Time No Known Allergies Allergy Verified 02/20/23 10:45 Physical Exam Vitals: Vital Signs Temp Pulse Resp BP Pulse Ox 02/20/23 13:45 97 18 96 02/20/23 11:18 95 20 120/85 95 02/20/23 10:07 107 H 20 98/65 99 02/20/23 09:40 102 H 26 H 90 L 02/20/23 08:08 98 F 102 H 18 119/72 96 Intake and Output 02/19/23 02/20/23 02/20/23 22:59 06:59 14:59 Other: Weight 113.398 kg Results CBC & Chem 7: 02/20/23 08:27 02/20/23 08:27 Labs: Abnormal Lab Results - Last 24 Hours (Table) 02/20/23 Range/Units 08:27 Total Bilirubin 1.9 H (0.2-1.3) mg/dL
--- NOTE | 2023-02-21 13:38 | P.DS ---
Providers Date of admission: 02/20/23 10:04 Expected date of discharge: 02/21/23 Attending physician: Josué Coburn MD Consults: 02/20/23 10:29 Consult Physician Urgent Consulting Provider: Roc Florian Consult Reason/Comments: Dyspnea, chest pressure, a-fib Do you want consulting provider notified?: Yes [facility] Course: Discharge diagnoses; Shortness of breath Persistent atrial fibrillation Hypertension Hyperlipidemia Acute on chronic systolic CHF Hospital course; patient 72-year-old gentleman with past medical history significant for persistent atrial fibrillation, nonischemic cardiomyopathy, TIA, hyperlipidemia, carotid stenosis, and normal coronary arteries presented to the hospital with a chief complaint of shortness of breath and chest pressure. Patient stated that he has been having chest pains, central in location, intermittent, pressure-like for the last few days. Patient complaining of orthopnea as well. Denies any swelling of feet. Denies any palpitations. Because of chest pain, patient came to the ER Initial lab work done in the ER showed WBC 8.2, hemoglobin 15.8, platelet count was 34, sodium 1 4.5, BUN 18, creatinine 0.76, AST 28 troponin 0.012 Chest x-ray negative for acute cardiopulmonary process Patient was admitted to medicine service 02/21. Patient seen and examined. Patient was seen by cardiology and they recommended the following Continue metoprolol succinate 150 mg in the morning. Add an additional dose of 25 mg at night Continue Aldactone 25 mg daily.Add Lasix 20 mg daily for 5 days Cardiology cleared the patient for discharge PHYSICAL EXAMINATION: GENERAL: The patient is alert and oriented x3, not in any acute distress. Well developed, well nourished. HEENT: Pupils are round and equally reacting to light. EOMI. No scleral icterus. No conjunctival pallor. Normocephalic, atraumatic. No pharyngeal erythema. No thyromegaly. CARDIOVASCULAR: S1 and S2 present. No murmurs, rubs, or gallops. PULMONARY: Chest is clear to auscultation, no wheezing or crackles. ABDOMEN: Soft, nontender, nondistended, normoactive bowel sounds. No palpable organomegaly. MUSCULOSKELETAL: No joint swelling or deformity. EXTREMITIES: No cyanosis, clubbing, or pedal edema. NEUROLOGICAL: Gross neurological examination did not reveal any focal deficits. SKIN: No rashes. Dictation was produced using [employer] dictation software. please excuse any grammatical, word or spelling errors. Patient Condition at Discharge: Good Plan - Discharge Summary New Discharge Prescriptions: New Furosemide [Lasix] 20 mg PO DAILY #5 tab Metoprolol Succinate (ER) [Toprol XL] 25 mg PO HS #90 tab Metoprolol Succinate (ER) [Toprol XL] 150 mg PO DAILY #90 tab Continue Levothyroxine Sodium [Synthroid] 125 mcg PO DAILY PARoxetine HCL [Paxil] 30 mg PO DAILY Spironolactone [Aldactone] 25 mg PO DAILY #90 tab Atorvastatin [Lipitor] 20 mg PO HS 30 Days #30 tab Apixaban [Eliquis] 5 mg PO BID 30 Days #60 tab Sacubitril/Valsartan [Entresto 24 mg-26 mg Tablet] 1 tab PO BID Discontinued Metoprolol Succinate (ER) [Toprol XL] 100 mg PO DAILY tab Discharge Medication List Levothyroxine Sodium [Synthroid] 125 mcg PO DAILY 08/29/18 [History] PARoxetine HCL [Paxil] 30 mg PO DAILY 12/30/22 [History] Atorvastatin [Lipitor] 20 mg PO HS 30 Days #30 tab 01/01/23 [Rx] Apixaban [Eliquis] 5 mg PO BID 30 Days #60 tab 01/19/23 [Rx] Sacubitril/Valsartan [Entresto 24 mg-26 mg Tablet] 1 tab PO BID 02/20/23 [History] Furosemide [Lasix] 20 mg PO DAILY #5 tab 02/21/23 [Rx] Metoprolol Succinate (ER) [Toprol XL] 25 mg PO HS #90 tab 02/21/23 [Rx] Metoprolol Succinate (ER) [Toprol XL] 150 mg PO DAILY #90 tab 02/21/23 [Rx] Spironolactone [Aldactone] 25 mg PO DAILY #90 tab 02/21/23 [Rx] Follow up Appointment(s)/Referral(s): Sreekanth Pierre MD [STAFF PHYSICIAN] - 03/06/23 11:00 am (Appointment made at the [employer] [facility] office ) Supa Macias DO [Primary Care Provider] - 1-2 days Discharge Disposition: HOME SELF-CARE
[2023-02-21] MEDS ORDERED: METOPROLOL SUCCINATE (ER) 25 MG TAB.ER.24H PO SCH (21:00)
== END 2023-02-21 14:08 | disposition home or self-care (01) ==
LOC: EC 08:03 → 6NMEDSUR 10:04
PROVIDERS: ADMIT Internal Medicine; ATTEND Internal Medicine
DX: I48.19 Other persistent atrial fibrillation (principal); I11.0 Hypertensive heart disease with heart failure; I50.23 Acute on chronic systolic (congestive) heart failure; I10 Essential (primary) hypertension; E78.5 Hyperlipidemia, unspecified; I42.8 Other cardiomyopathies; Z20.822 Contact with and (suspected) exposure to COVID-19; Z86.73 Personal history of transient ischemic attack (TIA), and cerebral infarction without residual deficits; I65.29 Occlusion and stenosis of unspecified carotid artery; Z79.01 Long term (current) use of anticoagulants; Z79.890 Hormone replacement therapy; Z79.899 Other long term (current) drug therapy; E07.9 Disorder of thyroid, unspecified; Z98.890 Other specified postprocedural states; Z80.9 Family history of malignant neoplasm, unspecified
CPT/HCPCS: 99285; 36415; 93005; 83880; 80053; 84443; 83735; 84484; 85025; 85610; 85730; 87636; 71046; G0378 ×2

== ENCOUNTER → 2023-03-17 | Outpatient (CLI) | payer MEDICARE ==
[2023-03-17 15:52] LABS: HCT 46.8 % (39.6-50.0); HGB 15.5 d/dL (13.0-17.0); MCH 31.1 pg (27.0-32.0); MCHC 33.1 d/dL (32.0-37.0); NRBC Per 100 WBC 0 X 10*3/uL (0.00-0.01); Platelet Count 221 X 10*3/uL (140-440); RBC 4.98 X 10*6/uL (4.40-5.60); RDW 12.8 % (11.5-14.5); WBC 7.64 X 10*3/uL (4.50-10.00)
[2023-03-17 16:41] LABS: Blood Urea Nitrogen 18.9 mg/dL (9.0-27.0); Carbon Dioxide 25.1 mmol/L (21.6-31.8); Chloride 106 mmol/L (96-109); Potassium 4.9 mmol/L (3.5-5.5); Sodium 141 mmol/L (135-145)
== END | disposition home or self-care (01) ==
LOC: LABWHC1 09:41
PROVIDERS: ATTEND Internal Medicine Clinical Cardiac Electrophysiology
DX: Z01.812 Encounter for preprocedural laboratory examination (principal); I48.0 Paroxysmal atrial fibrillation
CPT/HCPCS: 36415; 80051; 82565; 84520; 85027

== ENCOUNTER 2023-03-28 09:47 | Day surgery (SDC) | payer MEDICARE ==
[2023-03-20 15:27] VITALS: BMI 39.7
[~2023-03-28 09:47] MED LIST: LACTATED RINGERS 1,000 ML IV SCH; SODIUM CHLORIDE 0.9% 1,000 ML IV SCH
[2023-03-28] MEDS ORDERED: SODIUM CHLORIDE 0.9% 1,000 ML IV ONE (10:05)
[2023-03-28] MEDS ORDERED: LIDOCAINE 2% INJ 20 MG/ML (2 ML VIAL) ONE (12:31)
[2023-03-28] MEDS ORDERED: HEPARIN SODIUM,PORCINE 10,000 UNIT/ML 1 ML VIAL ONE (12:31)
[2023-03-28] MEDS ORDERED: MIDAZOLAM 2 MG/2 ML VIAL ONE (12:31)
[2023-03-28] MEDS ORDERED: ROCURONIUM 10 MG/ML (5 ML VIAL) IV ONE (12:31)
[2023-03-28] MEDS ORDERED: HYDROmorphone (PF) 1 MG/ML ONE (12:31)
[2023-03-28] MEDS ORDERED: fentaNYL (PF) 50 MCG/ML 2 ML AMP ONE (12:31)
[2023-03-28] MEDS ORDERED: HEPARIN SODIUM,PORCINE 5,000 UNIT/ML 1 ML VIAL ONE (12:31)
[2023-03-28] MEDS ORDERED: PROPOFOL 10 MG/ML 20 ML VIAL IV ONE (12:31)
[2023-03-28] MEDS ORDERED: SUCCINYLCHOLINE CHLORIDE 200 MG/10 ML VIAL IV ONE (12:31)
[2023-03-28] MEDS ORDERED: LIDOCAINE 1% INJ 10MG/ML (20 ML MDV) ONE (12:54)
[2023-03-28] MEDS ORDERED: HEPARIN SOD,PORK IN 0.45% NACL 25,000 UNIT in 0.45% NACL 1 250ML.BAG IV ONE (13:20)
[2023-03-28] MEDS ORDERED: LIDOCAINE 1% INJ 10MG/ML (20 ML MDV) SQ ONE (13:20)
[2023-03-28] MEDS ORDERED: IOPAMIDOL-370 100ML BTL INJ ONE (15:41)
--- NOTE | 2023-03-28 16:03 | P.HPCAR ---
History of Present Illness This is Dr. Pierre dictating an H/P on this patient The patient was interviewed and examined IMPRESSION / ASSESSMENT: Persistent atrial fibrillation Severe LV dysfunction despite adequate rate control Class III CHF Sick Sinus Syndrome Nonischemic cardio myopathy Normal TSH of 1.5 PLAN: A. fib ablation for persistent atrial fibrillation Continue anticoagulation HPI Patient remains in atrial fibrillation and his main symptom is shortness of breath on exertion tiredness and fatigue He also sleeps in a recliner chair No chest discomfort dizziness lightheadedness no cough expectoration fever chills or rigors in the recent 1-2 weeks ROS: No fever chills or rigors, no cough, phlegm or expectoration, no nausea, vomiting or diarrhea, no hematuria, dysuria, no musculoskeletal complaints, no strokes or seizures, no skin lesions. EXAMINATION: Mild JVD in supine position Normal respirations Pulse rate 81 irregular Afebrile Blood pressure 118/77 mmHg Heart sounds irregular no murmurs Lungs clear no rhonchi no crackles Abdomen is soft nontender Central obesity noted No lower extremity edema REVIEW OF LABS, ECG & MEDICAL DATA normal TSH Physical Exam Vitals: Vital Signs Temp Pulse Resp BP Pulse Ox 03/28/23 10:18 97.7 F 81 16 118/77 98 Intake and Output 03/28/23 03/28/23 03/28/23 06:59 14:59 22:59 Intake Total 644 Balance 644 Intake: IV 644 Other: Weight 115.4 kg Past Medical History Past Medical History: Atrial Fibrillation, Hypertension, Thyroid Disorder History of Any Multi-Drug Resistant Organisms: None Reported Past Surgical History: Heart Catheterization Additional Past Surgical History / Comment(s): SINUS SURGERY R/T FUNGUS. COLONOSCOPY 2016., Past Anesthesia/Blood Transfusion Reactions: Previous Problems w/ Anesthesia Additional Past Anesthesia/Blood Transfusion Reaction / Comment(s): LAST C OLONOSCOPY TOOK LONG TIME TO AWAKEN. Smoking Status: Never smoker - Past Family History Father Family Medical History: Cancer Physical Examination Vital Signs Temp Pulse Resp BP Pulse Ox 03/28/23 10:18 97.7 F 81 16 118/77 98 Intake and Output 03/28/23 03/28/23 03/28/23 06:59 14:59 22:59 Intake Total 644 Balance 644 Intake: IV 644 Other: Weight 115.4 kg Results Current Medications Generic Name Dose Route Start Last Admin Trade Name Freq PRN Reason Stop Dose Admin Lactated Ringer's 1,000 mls @ 20 mls/hr 03/28/23 05:51 Lactated Ringers IV 04/27/23 05:52 .Q24H MONAE Sodium Chloride 1,000 mls @ 20 mls/hr 03/28/23 05:51 Saline 0.9% IV 04/27/23 05:52 .Q24H MONAE Intake and Output 03/28/23 03/28/23 03/28/23 06:59 14:59 22:59 Intake Total 644 Balance 644 Intake: IV 644 Other: Weight 115.4 kg Patient Weight 03/29/23 06:59 Weight 115.4 kg
[2023-03-28] MEDS ORDERED: ACETAMINOPHEN IV (For NPO) 1,000 MG in EMPTY BAG 1 BAG IVPB ONE (16:05)
[2023-03-28] MEDS ORDERED: ACETAMINOPHEN TAB 325 MG TAB PO PRN (16:05)
--- NOTE | 2023-03-28 16:14 | P.EPPROC ---
- EP Procedure Note Electrophysiology Procedure Note: PROCEDURE A. fib ablation with pulmonary vein isolation, left atrial roof ablation, posterior wall ablation DIAGNOSIS Persistent Atrial fibrillation, symptomatic, refractory to therapy, associated with severe cardio myopathy in heart failure, nonischemic RESULT No left atrial appendage mass seen on intracardiac echo, very dilated left atrium Very large pulmonary veins especially the right superior, left superior and left inferior pulmonary veins Successful A. fib ablation/pulmonary vein isolation of all veins using cryo- ablation, at an antral level Complete entrance block in all 4 veins confirmed Left atrial roof ablation Left atrial posterior wall ablation No evidence for phrenic nerve injury Esophageal deflection YES Electrical cardioversion with a synchronized shock across the chest YES PROCEDURE DETAILS Written informed consent prior to procedure. Patient brought to the EP lab. General anesthesia given. Heparin administered. A city maintained above 300 seconds Both groins prepped and draped per protocol and venous sheaths placed. Esophagus intubated, circa catheter for temperature monitoring an endoscope for possible esophageal deflection. Phrenic nerve monitoring performed. Esophageal temperature monitoring performed. Esophageal deflection performed if circa catheter overlapping with the balloon or circa temperature less than 27.5C Intracardiac echocardiography performed. Pericardium evaluated. Left atrial appendage evaluated. Left atrium evaluated along with pulmonary veins Transseptal catheterization performed under fluoroscopic guidance and intracardiac echo guidance Cryoablation sheath exchanged, balloon catheter along with achieve catheter placed in the left atrium. Pulmonary veins isolated in the following sequence: Left superior pulmonary vein followed by left inferior pulmonary vein, followed by right inferior pulmonary vein and lastly right superior pulmonary vein. Phrenic nerve stimulation along with capture thresholds within the SVC and right superior pulmonary vein to identify the phrenic nerve proximity to the cryo- balloon. Pulmonary veins isolated and confirmed with entrance and exit block. Phrenic nerve integrity confirmed at the end of the procedure Ablation of the left atrial roof performed with sequential lesions from the left superior to the right superior pulmonary veins. Ablation of the electrograms confirmed Ablation of the left posterior wall performed. The right inferior and left inferior pulmonary veins are cannulated with a chief catheter and the balloon was withdrawn into the left atrium and an appropriate block provided to ablate the posterior wall sequentially from the right and then from the left. Electrical cardioversion performed for persistence of atrial fibrillation despite successful ablation. Diagnostic catheters for the high right atrium, His bundle, coronary sinus kristopher diann. LA and RA pressures recorded RA pressure: 18/12/15 LA pressure: 20/13/16 Diagnostic EP study with coronary sinus pacing and recording Baseline measurements after electrical cardioversion: Sinus cycle length 1068, GA interval 170, QRS 107, QT 369 AH 91 and HV 50 Venous sheaths were removed and hemostasis assured with a closure device. Patient extubated and transferred to recovery Increase procedural time During ablation multiple attempts had to be made to move the esophagus a safe distance of the from the pulmonary vein draining cryoablation, to avoid excessive thermal cooling of the esophagus This took extra time and effort to keep the esophagus a safe distance away from the cryoablation balloon. The procedure was long on account of a very large pulmonary veins especially the right superior, left superior and left inferior veins which required multiple attempts for occlusion and then multiple cryoablation lesions for complete isolation. In addition the size of the left atrium was significantly enlarged and both the roof line and the posterior wall multiple sequential lesions for complete isolation The size of the atrium and the pulmonary veins was the main determinant of this factor. PROCEDURES PERFORMED Diagnostic EP study CS pacing and recording Left and right transseptal catheterization Catheter the mapping of the tachycardia Intracardiac echocardiography Pulmonary vein isolation with transseptal and comprehensive EPS, 41896 Extended procedure duration Left atrial roof line, +74078 Linear ablation, left atrium posterior wall, +[id number] Electrical cardioversion with a synchronized shock across the chest 14468
--- NOTE | 2023-03-28 16:16 | P.PRLE ---
RE: Jett Shah Dear Shikha Frausto underwent in A. fib ablation with pulmonary vein isolation and ablation of the left atrial roof of the posterior wall His left atrium and pulmonary veins were significantly enlarged on intracardiac echo In addition he has severe LV dysfunction, nonischemic in nature Hopefully by maintaining sinus rhythm and been improvement with his LV size and function as well as the size of the atria He will continue anticoagulation lifelong for now as well as medications for cardio myopathy Thank you for entrusting me with the care of the patient Warm regards Sincerely Sreekanth Pierre
[2023-03-28] MEDS: fentaNYL (PF) 50 MCG/ML 2 ML AMP IVP ONE ×2 (17:04→17:20)
[2023-03-29] MEDS: LEVOTHYROXINE 125 MCG TAB PO SCH (05:35)
[2023-03-29] MEDS: SPIRONOLACTONE 25 MG TAB PO SCH (08:10)
[2023-03-29] MEDS: METOPROLOL SUCCINATE (ER) 50 MG TAB.ER.24H PO SCH (08:11)
[2023-03-29] MEDS: LOSARTAN 25 MG TAB PO SCH (08:11)
[2023-03-29] MEDS: RIVAROXABAN 20 MG TAB PO SCH (08:11)
[2023-03-29] MEDS: PARoxetine 10 MG TAB PO SCH (08:11)
[2023-03-29] MEDS: FUROSEMIDE 20 MG TAB PO SCH (08:11)
[2023-03-29] MEDS ORDERED: LIDOCAINE 5% PATCH TOPICAL STA (21:08)
[2023-03-29] MEDS ORDERED: methocarbamoL 500 MG TAB PO STA (21:09)
[2023-03-30] MEDS: LEVOTHYROXINE 125 MCG TAB PO SCH (05:45)
[2023-03-30 08:10] VITALS: BP 106/71; PULSE 69; RESP 18; TEMP 98.2
--- NOTE | 2023-03-30 08:49 | P.DS ---
Providers Attending physician: Sreekanth Pierre Primary care physician: [facility] [place] Course: Patient had severe back pain yesterday and is finding it difficult to walk Therefore he was kept in the hospital overnight Today he is doing a lot better He is a lot more comfortable. Minimal back pain. No chest pain Throat feels better No breathing trouble line sitting comfortably in bed On examination Blood pressure 106/71 mmHg respiratory rate 18 and pulse rate 70 Afebrile Heart sounds are regular no murmurs Lungs sounds are clear no rhonchi no crackles Impression persistent atrial fibrillation status post A. fib ablation Known cardiac myopathy Plan Reduce Toprol-XL 250 mrem daily in the morning Discontinue the evening dose of Toprol We have made arrangements for the patient to get Xarelto 20 mg by mouth daily He will take Xarelto with meals as explained Continue all other medications Follow-up in the carotid office with me in about a week Plan - Discharge Summary Discharge Rx Participant: Yes New Discharge Prescriptions: New Rivaroxaban [Xarelto] 20 mg PO DAILY #30 tab Continue RX: Levothyroxine Sodium [Synthroid] 125 mcg PO DAILY RX: PARoxetine HCL [Paxil] 30 mg PO DAILY RX: Furosemide [Lasix] 20 mg PO DAILY #5 tab RX: Spironolactone [Aldactone] 25 mg PO DAILY #90 tab RX: Losartan [Cozaar] 12.5 mg PO DAILY RX: Metoprolol Succinate (ER) [Toprol XL] 150 mg PO DAILY #90 tab Discontinued Rivaroxaban [Xarelto] 20 mg PO DAILY RX: Metoprolol Succinate (ER) [Toprol XL] 25 mg PO HS #90 tab Discharge Medication List RX: Levothyroxine Sodium [Synthroid] 125 mcg PO DAILY 08/29/18 [History] RX: PARoxetine HCL [Paxil] 30 mg PO DAILY 12/30/22 [History] RX: Furosemide [Lasix] 20 mg PO DAILY #5 tab 02/21/23 [Rx] RX: Metoprolol Succinate (ER) [Toprol XL] 150 mg PO DAILY #90 tab 02/21/23 [Rx] RX: Spironolactone [Aldactone] 25 mg PO DAILY #90 tab 02/21/23 [Rx] RX: Losartan [Cozaar] 12.5 mg PO DAILY 03/20/23 [History] Rivaroxaban [Xarelto] 20 mg PO DAILY #30 tab 03/29/23 [Rx] Follow up Appointment(s)/Referral(s): Sreekanth Pierre MD [STAFF PHYSICIAN] - 04/05/23 11:15 am Activity/Diet/Wound Care/Special Instructions: Post EP study - Ablation instructions 1. Keep access sites dry for 2 days. 2. No heavy lifting or straining for 2 days. 3. Avoid bending the hips repeatedly for 2 days. 4. You may go up and down stairs slowly Call if the following is noted 1. Bleeding, increasing swelling or pain at the access sites. 2. Increasing chest discomfort, especially upon taking a deep breath. 3. Increasing shortness of breath, at rest or with exertion. 4. Undue cough / phlegm 5. Difficulty or pain while swallowing. 6. Pain or change in color in the extremities. 7. Fever, chills, rigors. 8. Increasing headache or neurologic symptoms. 9. Dizziness, fainting, palpitations Discharge Disposition: HOME SELF-CARE
[2023-03-30] MEDS: RIVAROXABAN 20 MG TAB PO SCH (09:42)
[2023-03-30] MEDS: SPIRONOLACTONE 25 MG TAB PO SCH (09:42)
[2023-03-30] MEDS: METOPROLOL SUCCINATE (ER) 50 MG TAB.ER.24H PO SCH (09:42)
[2023-03-30] MEDS: FUROSEMIDE 20 MG TAB PO SCH (09:42)
[2023-03-30] MEDS: PARoxetine 10 MG TAB PO SCH (09:43)
[2023-03-30] MEDS: LOSARTAN 25 MG TAB PO SCH (09:43)
== END 2023-03-30 11:05 | disposition home or self-care (01) ==
LOC: CATHEP 09:47 → 6NMEDSUR 15:53 → CATHEP 03-30 11:05
PROVIDERS: ATTEND Internal Medicine Clinical Cardiac Electrophysiology
DX: I11.0 Hypertensive heart disease with heart failure (principal); I50.9 Heart failure, unspecified; I49.5 Sick sinus syndrome; I50.1 Left ventricular failure, unspecified; I25.10 Atherosclerotic heart disease of native coronary artery without angina pectoris; I73.9 Peripheral vascular disease, unspecified; E07.9 Disorder of thyroid, unspecified; E78.5 Hyperlipidemia, unspecified; Z98.890 Other specified postprocedural states; Z80.9 Family history of malignant neoplasm, unspecified; Z79.01 Long term (current) use of anticoagulants; Z86.73 Personal history of transient ischemic attack (TIA), and cerebral infarction without residual deficits; Z79.02 Long term (current) use of antithrombotics/antiplatelets; Z79.811 Long term (current) use of aromatase inhibitors; Z79.899 Other long term (current) drug therapy
CPT/HCPCS: 93656; 93657; 86900; 86901; 84443; 86850; C1894 ×2; C1769 ×3; C1760; C1730 ×2; C1759; C1893; C1733; C1766; J2250; J0330; J1644 ×3; J2001 ×2; J3010; J1170; J0131; J2704; Q9967

== ENCOUNTER → 2024-08-12 | Outpatient (CLI) | payer MEDICARE ==
--- NOTE | 2024-08-12 13:24 | CT ---
EXAMINATION TYPE: CT brain wo con CT DLP: 1098.8 mGycm, Automated exposure control for dose reduction was used. DATE OF EXAM: 08/12/2024 1:15 PM COMPARISON: CT brain 12/30/2022, MRI brain 12/30/2022, CT brain C-spine 08/29/2018 CLINICAL INDICATION:Male, 74 years old with history of S09.90XA head injury, fell hitting head, on th inners TECHNIQUE: Brain: Multiple axial CT images of the brain were obtained without IV contrast. . Coronal and sagitta l reformats reviewed. FINDINGS: Brain: Extra-axial spaces: No abnormal extra-axial fluid collections. Ventricular system: Within normal limits Cerebral parenchyma: No acute intraparenchymal hemorrhage or mass effect. The nance-white junction is well differentiated. Scattered hypoattenuating areas are seen within the periventricular white matte r. Cerebellum: Unremarkable. Mass effect: No evidence of midline shift. Intracranial vasculature: Atherosclerotic calcifications of the intracranial vessels. Soft tissues: Normal. Calvarium/osseous structures: No depressed skull fracture. Paranasal sinuses and mastoid air cells: Stable 1.1 cm anterior left maxillary sinus mucous retention cyst. Scattered mild mucosal thickening of the ethmoid sinuses. The mastoid air cells are clear. Visualized orbits: Orbital contents are intact. IMPRESSION: 1. No acute intracranial process. 2. Nonspecific white matter changes, likely secondary to chronic small vessel ischemic disease. [facility], , 08/12/2024 1:22 PM
== END | disposition home or self-care (01) ==
LOC: RADCTMAIN 12:54
PROVIDERS: ATTEND Emergency Medicine
DX: S09.90XA Unspecified injury of head, initial encounter (principal); R90.82 White matter disease, unspecified
CPT/HCPCS: 70450

== ENCOUNTER → 2024-08-27 | Outpatient (CLI) | payer MEDICARE | LOC: CPPFTMAIN 06:56 | PROVIDERS: ATTEND Family Medicine | DX: R06.09 Other forms of dyspnea (principal) | CPT/HCPCS: 94060; 94726; 94729 ==

== ENCOUNTER → 2024-09-02 | Outpatient (CLI) | payer MEDICARE ==
--- NOTE | 2024-09-02 10:02 | FL ---
EXAMINATION TYPE: FL sniff test without CXR DATE OF EXAM: 09/02/2024 8:18 AM COMPARISON: Chest radiograph from CLINICAL INDICATION:Male, 74 years old with history of R06.02 SOB; TECHNIQUE: With the patient standing, fluoroscopy of the right and left hemidiaphragm was observed du ring normal resting respiration as well as deep inspiration, deep expiration, and "sniffing." Fluoroscopic time:18 min Fluoroscopic images:0 Radiographs taken: 4 DAP: 1.6634 mGym2 FINDINGS: Building Maintenance Technician film demonstrates: no focal consolidation, pneumothorax, or pleural effusions. The cardiomedias tinal silhouette is within normal limits. There is elevation of the left hemidiaphragm. This is stab le and compared to previous chest radiograph. The left diaphragm contracts during inspiration. Both hemidiaphragms move together. Normal excursion is demonstrated of the left hemidiaphragm. The right diaphragm contracts during inspiration. Both hemidiaphragms move together. Normal excursion is demonstrated of the right hemidiaphragm. IMPRESSION: Normal sniff test. [facility], , 09/02/2024 10:00 AM
== END | disposition home or self-care (01) ==
LOC: RADFLMAIN 07:33
PROVIDERS: ATTEND Internal Medicine Clinical Cardiac Electrophysiology
DX: R06.02 Shortness of breath (principal)
CPT/HCPCS: 76000